=== PATIENT | male | born 1990 | race Caucasian/White ===

== ENCOUNTER 2017-12-18 10:02 | Emergency (ER) | payer OTHER ==
--- NOTE | 2017-12-18 10:28 | ER ---
Nurse's Notes [facility] Name: Orion Bass Age: 27 yrs Sex: Male : 1990 Arrival Date: 12/18/2017 Time: 10:07 Bed 20 Private MD: None, None Diagnosis: Otitis media, unspecified, right ear;Otitis externa-bilateral Presentation: 12/18 10:11 Presenting complaint: Patient states: Right ear pain for 2 days. Transition of care: aj patient was not received from another setting of care. Onset of symptoms was December 17, 2017. Care prior to arrival: None. 10:11 Method Of Arrival: Ambulatory 10:11 Acuity: WALTER 5 10:20 Risk Assessment: Do you want to hurt yourself or someone else? Patient reports no ae1 desire to harm self or others. Initial Sepsis Screen: Does the patient meet any 2 criteria? No. Patient's initial sepsis screen is negative. Does the patient have a suspected source of infection? No. Patient's initial sepsis screen is negative. Triage Assessment: 10:12 General: Appears in no apparent distress. comfortable, Behavior is calm, cooperative, aj appropriate for age. Pain: Complains of pain in right ear. EENT: Reports pain in right ear. Neuro: Level of Consciousness is awake, alert, obeys commands, Oriented to person, place, time, situation, Appropriate for age. Respiratory: Airway is patent Respiratory effort is even, unlabored, Respiratory pattern is regular, symmetrical. Derm: Skin is intact, is healthy with good turgor, Skin is pink, warm \T\ dry. normal. Historical: - Allergies: 10:12 No Known Allergies; aj - Home Meds: 10:12 None [Active]; aj - PMHx: 10:12 None; aj - PSHx: 10:12 Hernia repair; aj - Immunization history:: Adult Immunizations up to date. - Social history:: Smoking status: Patient/guardian denies using tobacco. - Ebola Screening: : Patient negative for fever greater than or equal to 101.5 degrees Fahrenheit, and additional compatible Ebola Virus Disease symptoms Patient denies exposure to infectious person Patient denies travel to an Ebola-affected area in the 21 days before illness onset. Screenin:20 Tuberculosis screening: No symptoms or risk factors identified. Fall Risk None ae1 identified. 10:21 Abuse screen: Denies threats or abuse. Denies injuries from another. ae1 15:06 Nutritional screening: No deficits noted. ae1 Assessment: 10:20 General: Appears in no apparent distress. comfortable, Behavior is calm, cooperative. ae1 Pain: Complains of pain in right ear. Neuro: Level of Consciousness is awake, alert, obeys commands, Oriented to person, place, time, situation. Cardiovascular: Patient's skin is warm and dry. Respiratory: Airway is patent Respiratory effort is even, unlabored, Respiratory pattern is regular, symmetrical. GI: No signs and/or symptoms were reported involving the gastrointestinal system. : No signs and/or symptoms were reported regarding the genitourinary system. EENT: No signs and/or symptoms were reported regarding the EENT system. Derm: No signs and/or symptoms reported regarding the dermatologic system. Musculoskeletal: No signs and/or symptoms reported regarding the musculoskeletal system. Vital Signs: 10:12 BP 126 / 84; Pulse 71; Resp 19; Temp 97.6; Pulse Ox 98% on R/A; Weight 72.57 kg; Height aj 5 ft. 9 in. (175.26 cm); 10:12 Body Mass Index 23.63 (72.57 kg, 175.26 cm) ED Course: 10:07 Patient arrived in ED. mr 10:07 None, None is Private Physician. mr 10:11 Les[facility]-C [facility]. snw 10:11 Anand Bowers MD is Attending Physician. snw 10:11 Triage completed. aj 10:12 Arm band placed on right wrist. Patient placed in an exam room. aj 10:20 Bed in low position. Call light in reach. Side rails up X 1. Pulse ox on. ae1 10:21 Kristopher Mares, BENIGNO is Primary Nurse. ae1 10:45 No provider procedures requiring assistance completed. Patient did not have IV access ae1 during this emergency room visit. Administered Medications: No medications were administered Outcome: 10:27 Discharge ordered by . snw 10:45 Discharged to home ambulatory, with family. ae1 10:45 Condition: stable 10:45 Discharge instructions given to patient, Instructed on discharge instructions, follow up and referral plans. Demonstrated understanding of instructions. 10:47 Patient left the ED. ae1 Signatures: Alondra Frederick, RN RN Lesly Moya, CERAMIC ARTIST-C CERAMIC ARTIST-Csnw Unique Aponte mr Kristopher Mares, RN RN ae1
--- NOTE | 2017-12-18 10:28 | EDPHYS ---
Physician Documentation [facility] Name: Orion Bass Age: 27 yrs Sex: Male : 1990 Arrival Date: 12/18/2017 Time: 10:07 Bed 20 Private MD: None, None ED Physician Anand Bowers HPI: 12/18 10:31 This 27 yrs old Male presents to ER via Ambulatory with complaints of Ear snw Pain. 10:31 The patient presents with pain, that is acute, tenderness. The complaints affect the snw right ear. Onset: The symptoms/episode began/occurred suddenly, 2 day(s) ago, and became worse and became persistent. Associated signs and symptoms: Pertinent positives: pain to right cheek, face, Pertinent negatives: fever, nausea. Severity of symptoms: At their worst the symptoms were moderate in the emergency department the symptoms are unchanged. It is unknown whether or not the patient has had similar symptoms in the past. The patient has not recently seen a physician. Historical: - Allergies: 10:12 No Known Allergies; aj - Home Meds: 10:12 None [Active]; aj - PMHx: 10:12 None; aj - PSHx: 10:12 Hernia repair; aj - Immunization history:: Adult Immunizations up to date. - Social history:: Smoking status: Patient/guardian denies using tobacco. - Ebola Screening: : Patient negative for fever greater than or equal to 101.5 degrees Fahrenheit, and additional compatible Ebola Virus Disease symptoms Patient denies exposure to infectious person Patient denies travel to an Ebola-affected area in the 21 days before illness onset. ROS: 10:26 Constitutional: Negative for fever, chills, and weight loss, Eyes: Negative for injury, snw pain, redness, and discharge, Neck: Negative for injury, pain, and swelling, Cardiovascular: Negative for chest pain, palpitations, and edema, Respiratory: Negative for shortness of breath, cough, wheezing, and pleuritic chest pain, Abdomen/GI: Negative for abdominal pain, nausea, vomiting, diarrhea, and constipation, Back: Negative for injury and pain, : Negative for injury, bleeding, discharge, and swelling, MS/Extremity: Negative for injury and deformity, Skin: Negative for injury, rash, and discoloration, Neuro: Negative for headache, weakness, numbness, tingling, and seizure. 10:26 ENT: Positive for ear pain. Exam: 10:16 Constitutional: This is a well developed, well nourished patient who is awake, alert, snw and in no acute distress. Head/Face: Normocephalic, atraumatic. Eyes: Pupils equal round and reactive to light, extra-ocular motions intact. Lids and lashes normal. Conjunctiva and sclera are non-icteric and not injected. Cornea within normal limits. Periorbital areas with no swelling, redness, or edema. Neck: Trachea midline, no thyromegaly or masses palpated, and no cervical lymphadenopathy. Supple, full range of motion without nuchal rigidity, or vertebral point tenderness. No Meningismus. Chest/axilla: Normal chest wall appearance and motion. Nontender with no deformity. No lesions are appreciated. Cardiovascular: Regular rate and rhythm with a normal S1 and S2. No gallops, murmurs, or rubs. Normal PMI, no JVD. No pulse deficits. Respiratory: Lungs have equal breath sounds bilaterally, clear to auscultation and percussion. No rales, rhonchi or wheezes noted. No increased work of breathing, no retractions or nasal flaring. Abdomen/GI: Soft, non-tender, with normal bowel sounds. No distension or tympany. No guarding or rebound. No evidence of tenderness throughout. Back: No spinal tenderness. No costovertebral tenderness. Full range of motion. Skin: Warm, dry with normal turgor. Normal color with no rashes, no lesions, and no evidence of cellulitis. MS/ Extremity: Pulses equal, no cyanosis. Neurovascular intact. Full, normal range of motion. Neuro: Awake and alert, GCS 15, oriented to person, place, time, and situation. Cranial nerves II-XII grossly intact. Motor strength 5/5 in all extremities. Sensory grossly intact. Cerebellar exam normal. Normal gait. 10:16 ENT: Ear canal(s): erythema, that is moderate, bilaterally, TM's: erythema, that is moderate, on the right, Nose: is normal, Mouth: is normal, Posterior pharynx: is normal, Voice: is normal. Vital Signs: 10:12 BP 126 / 84; Pulse 71; Resp 19; Temp 97.6; Pulse Ox 98% on R/A; Weight 72.57 kg; Height aj 5 ft. 9 in. (175.26 cm); 10:12 Body Mass Index 23.63 (72.57 kg, 175.26 cm) aj MDM: 10:14 Patient medically screened. snw 10:30 Data reviewed: vital signs, nurses notes. Data interpreted: Pulse oximetry: on room air snw is 98 %. Interpretation: normal. Counseling: I had a detailed discussion with the patient and/or guardian regarding: the historical points, exam findings, and any diagnostic results supporting the discharge/admit diagnosis, the presence of at least one elevated blood pressure reading (>120/80) during this emergency department visit, the need for outpatient follow up, for definitive care, to return to the emergency department if symptoms worsen or persist or if there are any questions or concerns that arise at home. Special discussion: Based on the history and exam findings, there is no indication for further emergent testing or inpatient evaluation. I discussed with the patient/guardian the need to see the ENT specialist for further evaluation of the symptoms. I discussed with the patient/guardian the need to see the primary care provider for further evaluation of the symptoms. Administered Medications: No medications were administered Disposition: 11:16 Co-signature as Attending Physician, Anand Bowers MD I agree with the assessment and kdr plan of care. Disposition: 12/18/17 10:27 Discharged to Home. Impression: Otitis media, unspecified, right ear, Otitis externa - bilateral. - Condition is Stable. - Discharge Instructions: Otitis Media, Adult, Otitis Externa, Heat Therapy. - Prescriptions for Augmentin 500- 125 mg Oral Tablet - take 1 tablet by ORAL route every 8 hours for 10 days; 30 tablet. Diclofenac Sodium 75 mg Oral Tablet Sustained Release - take 1 tablet by ORAL route 2 times per day; 30 tablet. Ciprodex 0.3- 0.1 % Otic Drops, Suspension - instill 4 drop by OTIC route every 12 hours for 7 days , for ears ONLY; 1 Container. - Work release form, Medication Reconciliation Form, Thank You Letter, Antibiotic Education, Prescription Opioid Use form. - Follow up: Private Physician; When: 2 - 3 days; Reason: Recheck today's complaints, Continuance of care, Re-evaluation by your physician. Follow up: Emergency Department; When: As needed; Reason: Worsening of condition. Signatures: Alondra Frederick, RN RN Anand Ortiz MD MD kdr Lesly Vincent, HEALTH UNDERWRITER-C HEALTH UNDERWRITER-Csnw Kristopher Mares, RN RN ae1 Corrections: (The following items were deleted from the chart) 10:47 10:27 12/18/2017 10:27 Discharged to Home. Impression: Otitis media, unspecified, right ae1 ear; Otitis externa - bilateral. Condition is Stable. Forms are Medication Reconciliation Form, Thank You Letter, Antibiotic Education, Prescription Opioid Use. Follow up: Private Physician; When: 2 - 3 days; Reason: Recheck today's complaints, Continuance of care, Re-evaluation by your physician. Follow up: Emergency Department; When: As needed; Reason: Worsening of condition. snw
[2017-12-18 10:51] VITALS: BP 126/84; TEMP 97.6; O2SAT 98
== END 2017-12-18 10:47 | disposition home or self-care (01) ==
LOC: ER 10:02
DX: H66.91 Otitis media, unspecified, right ear (principal); H60.93 Unspecified otitis externa, bilateral
CPT/HCPCS: 99283

== ENCOUNTER 2018-03-13 15:11 | Emergency (ER) | payer OTHER ==
--- NOTE | 2018-03-13 15:45 | RAD REPORT ---
EXAM DESCRIPTION: RAD - Chest Pa And Lat (2 Views) - 03/13/2018 3:37 pm CLINICAL HISTORY: COUGH Chest pain. COMPARISON: Chest Single View dated 03/02/2017; Chest Single View dated 09/20/2016 FINDINGS: The lungs are clear. The heart is normal in size. No displaced fractures. IMPRESSION: No acute or concerning finding suspected.
--- NOTE | 2018-03-13 16:11 | EDPHYS ---
Physician Documentation [facility] Name: Orion Bass Age: 27 yrs Sex: Male : 1990 Arrival Date: 03/13/2018 Time: 15:16 Bed 25 Private MD: ED Physician Caesar Ivy HPI: 03/13 15:40 This 27 yrs old Male presents to ER via Ambulatory with complaints of Cold kb Symptoms. 15:40 The patient or guardian reports cough, that is intermittent, described as mild, with kb productive sputum, that is yellow. Onset: The symptoms/episode began/occurred 1 week(s) ago. Severity of symptoms: At their worst the symptoms were moderate, in the emergency department the symptoms are unchanged. Modifying factors: The symptoms are alleviated by nothing, the symptoms are aggravated by nothing. Associated signs and symptoms: Pertinent positives: rhinorrhea, sore throat, Pertinent negatives: chest pain, diarrhea, ear ache, fever, nausea, vomiting. The patient has experienced similar episodes in the past, a few times. The patient has not recently seen a physician. Historical: - Allergies: 15:18 No Known Allergies; sv - Home Meds: 15:18 None [Active]; sv - PMHx: 15:18 None; sv - PSHx: 15:18 Hernia repair; sv - Immunization history:: Adult Immunizations up to date. - Social history:: Smoking status: Patient/guardian denies using tobacco. - Ebola Screening: : No symptoms or risks identified at this time. ROS: 15:38 Cardiovascular: Negative for chest pain, palpitations, and edema, Abdomen/GI: Negative kb for abdominal pain, nausea, vomiting, diarrhea, and constipation, Back: Negative for injury and pain, : Negative for injury, bleeding, discharge, and swelling, MS/Extremity: Negative for injury and deformity, Skin: Negative for injury, rash, and discoloration, Neuro: Negative for headache, weakness, numbness, tingling, and seizure. 15:38 Constitutional: Positive for fever, Negative for body aches, chills, fatigue, malaise, poor PO intake, weight loss. 15:38 ENT: Positive for rhinorrhea, sore throat. 15:38 Respiratory: Positive for cough, with yellow sputum, Negative for dyspnea on exertion, hemoptysis, orthopnea, pleurisy, shortness of breath, wheezing. Exam: 15:38 Constitutional: This is a well developed, well nourished patient who is awake, alert, kb and in no acute distress. Head/Face: Normocephalic, atraumatic. Chest/axilla: Normal chest wall appearance and motion. Nontender with no deformity. No lesions are appreciated. Cardiovascular: Regular rate and rhythm with a normal S1 and S2. No gallops, murmurs, or rubs. Normal PMI, no JVD. No pulse deficits. Respiratory: Lungs have equal breath sounds bilaterally, clear to auscultation and percussion. No rales, rhonchi or wheezes noted. No increased work of breathing, no retractions or nasal flaring. Abdomen/GI: Soft, non-tender, with normal bowel sounds. No distension or tympany. No guarding or rebound. No evidence of tenderness throughout. Back: No spinal tenderness. No costovertebral tenderness. Full range of motion. Skin: Warm, dry with normal turgor. Normal color with no rashes, no lesions, and no evidence of cellulitis. MS/ Extremity: Pulses equal, no cyanosis. Neurovascular intact. Full, normal range of motion. Neuro: Awake and alert, GCS 15, oriented to person, place, time, and situation. Cranial nerves II-XII grossly intact. Motor strength 5/5 in all extremities. Sensory grossly intact. Cerebellar exam normal. Normal gait. 15:38 ENT: Posterior pharynx: Airway: normal, no evidence of obstruction, Tonsils: are normal in appearance, Uvula: normal, midline, swelling, is not appreciated, erythema, that is mild, exudate, is not appreciated. Vital Signs: 15:18 BP 118 / 88; Pulse 91; Resp 18; Temp 98.2; Pulse Ox 98% ; Weight 72.57 kg; Height 5 ft. sv 7 in. (170.18 cm); Pain 0/10; 16:00 BP 120 / 78; Pulse 90; Resp 18; Pulse Ox 100% on R/A; Pain 0/10; mg2 15:18 Body Mass Index 25.06 (72.57 kg, 170.18 cm) sv MDM: 15:19 Patient medically screened. kb 15:38 Data reviewed: vital signs, nurses notes. Data interpreted: Pulse oximetry: on room air kb is 98 %. Interpretation: normal. 15:57 Counseling: I had a detailed discussion with the patient and/or guardian regarding: the kb historical points, exam findings, and any diagnostic results supporting the discharge/admit diagnosis, lab results, radiology results, the need for outpatient follow up, a family practitioner, to return to the emergency department if symptoms worsen or persist or if there are any questions or concerns that arise at home. 03/13 15:28 Order name: Strep; Complete Time: 15:57 kb 03/13 15:58 Order name: Throat Culture EDCO 03/13 15:28 Order name: Chest Pa And Lat (2 Views) XRAY; Complete Time: 15:46 kb Administered Medications: No medications were administered Disposition: 03/14 08: Co-signature as Attending Physician, Caesar Ivy MD I agree with the assessment and wa plan of care. Disposition: 03/13/18 16:10 Discharged to Home. Impression: Acute upper respiratory infection, unspecified. - Condition is Stable. - Discharge Instructions: Upper Respiratory Infection, Adult, [id number]. - Medication Reconciliation Form, Thank You Letter, Antibiotic Education, Prescription Opioid Use, Work release form form. - Follow up: Emergency Department; When: As needed; Reason: Worsening of condition. Follow up: Private Physician; When: 2 - 3 days; Reason: Recheck today's complaints, Continuance of care, Re-evaluation by your physician. Signatures: Dispatcher [employer] [facility] Yudy Stout, OZZY BURRIS-Lindsay Lr RN RN sv [place], William, MD MD wa [place]ose, Michele RN RN mg2 Corrections: (The following items were deleted from the chart) 03/13 16:20 16:10 03/13/2018 16:10 Discharged to Home. Impression: Acute upper respiratory mg2 infection, unspecified. Condition is Stable. Forms are Medication Reconciliation Form, Thank You Letter, Antibiotic Education, Prescription Opioid Use. Follow up: Emergency Department; When: As needed; Reason: Worsening of condition. Follow up: Private Physician; When: 2 - 3 days; Reason: Recheck today's complaints, Continuance of care, Re-evaluation by your physician. kb
--- NOTE | 2018-03-13 16:11 | ER ---
Nurse's Notes [facility] Name: Orion Bass Age: 27 yrs Sex: Male : 1990 Arrival Date: 03/13/2018 Time: 15:16 Bed 25 Private MD: Diagnosis: Acute upper respiratory infection, unspecified Presentation: 03/13 15:17 Presenting complaint: Patient states: sore throat, productive cough with yellow sputum, sv sneezing x 1 week. Transition of care: patient was not received from another setting of care. Onset of symptoms was March 06, 2018. Care prior to arrival: None. 15:17 Method Of Arrival: Ambulatory sv 15:17 Acuity: WALTER 3 sv 15:20 Risk Assessment: Do you want to hurt yourself or someone else? Patient reports no mg2 desire to harm self or others. Initial Sepsis Screen: Does the patient meet any 2 criteria? No. Patient's initial sepsis screen is negative. Does the patient have a suspected source of infection? No. Patient's initial sepsis screen is negative. Historical: - Allergies: 15:18 No Known Allergies; sv - Home Meds: 15:18 None [Active]; sv - PMHx: 15:18 None; sv - PSHx: 15:18 Hernia repair; sv - Immunization history:: Adult Immunizations up to date. - Social history:: Smoking status: Patient/guardian denies using tobacco. - Ebola Screening: : No symptoms or risks identified at this time. Screenin:25 Abuse screen: Denies threats or abuse. Denies injuries from another. Nutritional mg2 screening: No deficits noted. Tuberculosis screening: No symptoms or risk factors identified. Fall Risk None identified. Assessment: 15:25 General: Appears in no apparent distress. comfortable, Behavior is calm, cooperative. mg2 Pain: Complains of pain in throat Pain does not radiate. Pain currently is 2 out of 10 on a pain scale. Quality of pain is described as aching, Pain began gradually. Neuro: Level of Consciousness is awake, alert, obeys commands, Oriented to person, place, time, situation. Cardiovascular: Capillary refill < 3 seconds Patient's skin is warm and dry. Respiratory: Airway is patent Respiratory effort is even, unlabored, Respiratory pattern is regular, symmetrical, Breath sounds are clear bilaterally. Respiratory: Reports cough that is non-productive. GI: No signs and/or symptoms were reported involving the gastrointestinal system. : No signs and/or symptoms were reported regarding the genitourinary system. EENT: Ear canal clear on left ear and right ear Throat is clear. Derm: Skin is intact, Skin is pink, warm \T\ dry. normal. Musculoskeletal: No signs and/or symptoms reported regarding the musculoskeletal system. 16:15 Reassessment: Patient appears in no apparent distress at this time. Patient and/or mg2 family updated on plan of care and expected duration. Pain level reassessed. Patient is alert, oriented x 3, equal unlabored respirations, skin warm/dry/pink. Vital Signs: 15:18 BP 118 / 88; Pulse 91; Resp 18; Temp 98.2; Pulse Ox 98% ; Weight 72.57 kg; Height 5 ft. sv 7 in. (170.18 cm); Pain 0/10; 16:00 BP 120 / 78; Pulse 90; Resp 18; Pulse Ox 100% on R/A; Pain 0/10; mg2 15:18 Body Mass Index 25.06 (72.57 kg, 170.18 cm) sv ED Course: 15:16 Patient arrived in ED. as 15:17 [facility]C [facility] kb 15:17 Caesar Ivy MD is Attending Physician. kb 15:17 Triage completed. sv 15:18 Arm band placed on right wrist. sv 15:20 Anderson Briseno, BENIGNO is Primary Nurse. mg2 15:20 Patient has correct armband on for positive identification. mg2 15:25 No provider procedures requiring assistance completed. mg2 15:33 Strep swab sent to lab. mg2 15:35 Patient moved to radiology PT REFUSED W/C FOR TRANSPORT TO X RAY DEPT, PT AMBULATED. mh1 15:35 X-ray completed. Patient tolerated procedure well. Patient moved back from radiology. mh1 15:36 Chest Pa And Lat (2 Views) XRAY In Process Unspecified. EDMS 16:19 Patient did not have IV access during this emergency room visit. mg2 Administered Medications: No medications were administered Outcome: 16:10 Discharge ordered by . kb 16:19 Discharged to home ambulatory, with family. mg2 16:19 Condition: good 16:19 Discharge instructions given to patient, family, Instructed on discharge instructions, follow up and referral plans. Demonstrated understanding of instructions, follow-up care. 16:20 Patient left the ED. mg2 Signatures: Dispatcher [employer] EDYudy Villegas, FATUMA-C REGISTERED MIDWIFE-Lindsay Lr RN RN [place] [facility] Gena Coffman Michele, RN RN mg2 Corrections: (The following items were deleted from the chart) 15:20 15:17 Presenting complaint: Patient states: sore throat, coughing, sneezing x 1 week. svsv
[2018-03-13 16:30] VITALS: TEMP 98.2
[2018-03-13 16:31] VITALS: BP 120/78; O2SAT 100
== END 2018-03-13 16:20 | disposition home or self-care (01) ==
LOC: ER 15:11
DX: J06.9 Acute upper respiratory infection, unspecified (principal)
CPT/HCPCS: 71046; 87070; 87081; 99283

== ENCOUNTER 2018-12-04 15:40 | Emergency (ER) | payer OTHER, SELFPAY ==
[2018-12-04] MEDS ORDERED: DIPHENHYDRAMINE 25 MG TAB/CAP ONE (17:09)
[2018-12-04] MEDS ORDERED: FAMOTIDINE 20 MG TAB ONE (17:09)
[2018-12-04] MEDS ORDERED: METHYLPREDNISOLONE 125 MG INJ ONE (17:09)
--- NOTE | 2018-12-04 17:56 | EDPHYS ---
Physician Documentation [facility] Name: Orion Bass Age: 28 yrs Sex: Male : 1990 Arrival Date: 12/04/2018 Time: 15:41 Bed 30 Private MD: ED Physician Fabio Hensley HPI: 12/04 17:13 This 28 yrs old Male presents to ER via Ambulatory with complaints of Hives. pm1 17:13 The patient's rash thought to be caused by insect bite or contact with cleaning agent pm1 on the floor. 17:13 The rash is located on the right hand, left hand and right knee. Onset: The pm1 symptoms/episode began/occurred today. Associated signs and symptoms: Pertinent negatives: difficulty breathing, fever, itching, swelling of lips, swelling of throat, swelling of tongue, vomiting, wheezing. Severity of symptoms: in the emergency department the symptoms are unchanged. Treatment given at home: None. The patient has not experienced similar symptoms in the past. The patient has not recently seen a physician. Patient at daycare and mother was told that he has a rash to his right knee and both hands. Mother believes that it is either insect bites of possible reaction to the floor cleaning material - contact with crawling. Historical: - Allergies: 15:46 No Known Allergies; ss - Home Meds: 15:46 None [Active]; ss - PMHx: 15:46 None; ss - PSHx: 15:46 Hernia repair; ss - Immunization history:: Adult Immunizations unknown. - Social history:: Smoking status: Patient uses tobacco products, denies chronic smoking, but will smoke occasionally. - Ebola Screening: : Patient denies exposure to infectious person Patient denies travel to an Ebola-affected area in the 21 days before illness onset. ROS: 17:13 Constitutional: Negative for fever, chills, and weight loss, Eyes: Negative for injury, pm1 pain, redness, and discharge, ENT: Negative for injury, pain, and discharge, Neck: Negative for injury, pain, and swelling, Cardiovascular: Negative for chest pain, palpitations, and edema, Respiratory: Negative for shortness of breath, cough, wheezing, and pleuritic chest pain, Abdomen/GI: Negative for abdominal pain, nausea, vomiting, diarrhea, and constipation, Back: Negative for injury and pain, : Negative for injury, bleeding, discharge, and swelling, MS/Extremity: Negative for injury and deformity. 17:13 Neuro: Negative for headache, weakness, numbness, tingling, and seizure. 17:13 Skin: Positive for rash, of the left hand and right hand and right knee, Negative for cellulitis. Exam: 17:13 Constitutional: This is a well developed, well nourished patient who is awake, alert, pm1 and in no acute distress. Head/Face: Normocephalic, atraumatic. Eyes: Pupils equal round and reactive to light, extra-ocular motions intact. Lids and lashes normal. Conjunctiva and sclera are non-icteric and not injected. Cornea within normal limits. Periorbital areas with no swelling, redness, or edema. ENT: Nares patent. No nasal discharge, no septal abnormalities noted. Tympanic membranes are normal and external auditory canals are clear. Oropharynx with no redness, swelling, or masses, exudates, or evidence of obstruction, uvula midline. Mucous membranes moist. Neck: Trachea midline, no thyromegaly or masses palpated, and no cervical lymphadenopathy. Supple, full range of motion without nuchal rigidity, or vertebral point tenderness. No Meningismus. Chest/axilla: Normal chest wall appearance and motion. Nontender with no deformity. No lesions are appreciated. Cardiovascular: Regular rate and rhythm with a normal S1 and S2. No gallops, murmurs, or rubs. Normal PMI, no JVD. No pulse deficits. Respiratory: Lungs have equal breath sounds bilaterally, clear to auscultation and percussion. No rales, rhonchi or wheezes noted. No increased work of breathing, no retractions or nasal flaring. Abdomen/GI: Soft, non-tender, with normal bowel sounds. No distension or tympany. No guarding or rebound. No evidence of tenderness throughout. Back: No spinal tenderness. No costovertebral tenderness. Full range of motion. 17:13 MS/ Extremity: Pulses equal, no cyanosis. Neurovascular intact. Full, normal range of motion. 17:13 Skin: Appearance: normal except for affected area, abscess, not appreciated, cellulitis, is not appreciated, consistent with contact dermatitis. 17:13 Neuro: Orientation: is normal, Motor: is normal, moves all fours, Sensation: is normal, no obvious gross deficits. Vital Signs: 15:46 BP 137 / 98; Pulse 104; Resp 16; Temp 98.9(TE); Pulse Ox 98% on R/A; Weight 74.84 kg; ss Height 5 ft. 7 in. (170.18 cm); Pain 0/10; 18:06 BP 125 / 78; Pulse 89; Resp 18; Temp 98.5(O); Pulse Ox 100% on R/A; Pain 0/10; mg2 15:46 Body Mass Index 25.84 (74.84 kg, 170.18 cm) ss MDM: 16:38 Patient medically screened. pm1 17:54 Data reviewed: vital signs. Data interpreted: Pulse oximetry: on room air is 98 %. pm1 Interpretation: normal. Counseling: I had a detailed discussion with the patient and/or guardian regarding: the historical points, exam findings, and any diagnostic results supporting the discharge/admit diagnosis, the need for outpatient follow up, to return to the emergency department if symptoms worsen or persist or if there are any questions or concerns that arise at home. 12/04 16:46 Order name: Strep; Complete Time: 17:54 pm1 12/04 16:46 Order name: Flu; Complete Time: 17:54 pm1 12/04 17:51 Order name: Throat Culture EDMS Administered Medications: 17:14 Drug: SOLU-Medrol 125 mg Route: IM; Site: right gluteus; mg2 18:07 Follow up: Response: No adverse reaction; Marked relief of symptoms mg2 17:14 Drug: Pepcid 20 mg Route: PO; mg2 18:07 Follow up: Response: No adverse reaction; Marked relief of symptoms mg2 17:14 Drug: Benadryl 25 mg Route: PO; mg2 18:07 Follow up: Response: No adverse reaction; Marked relief of symptoms mg2 Disposition: 12/05 16:16 Co-signature as Attending Physician, Fabio Hensley MD. Disposition: 12/04/18 17:54 Discharged to Home. Impression: Urticaria, Acute pharyngitis. - Condition is Stable. - Discharge Instructions: Contact Dermatitis, Hives, Pharyngitis. - Prescriptions for Benadryl 25 mg Oral Capsule - take 1 capsule by ORAL route every 6 hours As needed; 30 tablet. Pepcid 20 mg Oral Tablet - take 1 tablet by ORAL route every 12 hours for 5 days; 10 tablet. Medrol (John) 4 mg Oral Tablets, Dose Pack - take 1 tablet by ORAL route as directed - follow package instructions; 1 packet. - Medication Reconciliation Form, Thank You Letter, Antibiotic Education, Prescription Opioid Use form. - Follow up: Emergency Department; When: As needed; Reason: Worsening of condition. Follow up: Private Physician; When: 2 - 3 days; Reason: Recheck today's complaints, Continuance of care, Re-evaluation by your physician. - Problem is new. - Symptoms have improved. Signatures: Dispatcher [employer] EDMS Angela Miranda RN RN ss Vinh Drake, SALES ENGAGEMENT MANAGER SALES ENGAGEMENT MANAGER pm1 Fabio Hensley MD MD Anderson Briseno RN RN mg2 Corrections: (The following items were deleted from the chart) 12/04 17:55 17:54 12/04/2018 17:54 Discharged to Home. Impression: Acute pharyngitis; Urticaria. pm1 Condition is Stable. Forms are Medication Reconciliation Form, Thank You Letter, Antibiotic Education, Prescription Opioid Use. Follow up: Emergency Department; When: As needed; Reason: Worsening of condition. Follow up: Private Physician; When: 2 - 3 days; Reason: Recheck today's complaints, Continuance of care, Re-evaluation by your physician. Problem is new. Symptoms have improved. pm1 18:07 17:55 12/04/2018 17:54 Discharged to Home. Impression: UrticariaAcute pharyngitis. mg2 Condition is Stable. Forms are Medication Reconciliation Form, Thank You Letter, Antibiotic Education, Prescription Opioid Use. Follow up: Emergency Department; When: As needed; Reason: Worsening of condition. Follow up: Private Physician; When: 2 - 3 days; Reason: Recheck today's complaints, Continuance of care, Re-evaluation by your physician. Problem is new. Symptoms have improved. pm1
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
[2018-12-04 18:16] VITALS: BP 125/78; TEMP 98.5; O2SAT 100
== END 2018-12-04 18:07 | disposition home or self-care (01) ==
LOC: ER 15:40
DX: L50.9 Urticaria, unspecified (principal); J02.9 Acute pharyngitis, unspecified; Z72.0 Tobacco use
CPT/HCPCS: 87070; 87081; 87804; 96372; 99283; J2930

== ENCOUNTER 2019-08-17 07:09 | Emergency (ER) | payer SELFPAY ==
--- OUTSIDE RECORDS SUMMARY | 2019-08-17 07:11 | XMS REPORT ---
:1990 Author Organization eClinicalWorks Care Team Providers Name Role Phone Brisa Knox Provider Role Unavailable Allergies No Known Allergies Problems Problem Type Condition Code Onset Dates Condition Status Problem Seasonal allergies J30.2 Active Problem Sinus problem J34.9 Active Problem Migraine G43.909 Active Problem Intractable migraine without G43.919 Active status migrainosus, unspecified migraine type Problem Allergic rhinitis, unspecified J30.9 Active seasonality, unspecified trigger Problem Chronic rhinitis J31.0 Active Problem Adverse effect of other T48.5X5A Active iewp-xldpgx-druh drugs, initial encounter Medications Medication Code Code Instructions Start End Date Status Dosage System Date Indomethacin [facility] 98911904758 50 MG Orally Jun 22, Jul 22, Active 1 capsule Twice a day 2018 2019 with food or milk Results No Known Results Summary Purpose eClinicalWorks Submission
--- OUTSIDE RECORDS SUMMARY | 2019-08-17 07:11 | XMS REPORT ---
:1990 Author Organization eClinicalWorks Care Team Providers Name Role Phone Brisa Knox Provider Role Unavailable Allergies, Adverse Reactions, Alerts Substance Reaction Event Type N.K.D.A. Info Not Available Non Drug Allergy Problems Problem Type Condition Code Onset Dates Condition Status Assessment Adverse effect of other T48.5X5A Active ogds-wasdfk-eaiv drugs, initial encounter Assessment Allergic rhinitis, unspecified J30.9 Active seasonality, unspecified trigger Assessment Intractable migraine without G43.919 Active status migrainosus, unspecified migraine type Problem Seasonal allergies J30.2 Active Problem Sinus problem J34.9 Active Problem Migraine G43.909 Active Problem Intractable migraine without G43.919 Active status migrainosus, unspecified migraine type Problem Allergic rhinitis, unspecified J30.9 Active seasonality, unspecified trigger Problem Chronic rhinitis J31.0 Active Problem Adverse effect of other T48.5X5A Active geex-edcdma-mofx drugs, initial encounter Medications Medication Code Code Instructions Start End Date Status Dosage System Date Tylenol [facility] 26468034389 325 MG Orally Active 1 capsule every 4 hrs as needed Diclofenac [place] 00227323261 50 MG Orally May 26September Active 1 tablet as Potassium Twice a day 2018 needed fo headache/pa in; take with food or milk Topamax [facility] 19745102192 25 MG Orally May 26, Active 1 tablet Once a day in 2018 evening for migraine headache Nasonex ND 19215523314 50 MCG/ACT May 26, Active 2 sprays in Nasally Once a 2019 each day nostril One Daily Mens [facility] 32391967847 - Orally Active as directed Results No Known Results Summary Purpose eClinicalWorks Submission
[2019-08-17] MEDS ORDERED: NA CHLORIDE 0.9% 1,000 ML ONE (07:30)
[2019-08-17] MEDS ORDERED: ONDANSETRON 4 MG/2 ML VIAL ONE (07:30)
[2019-08-17] MEDS ORDERED: KETOROLAC 30 MG/ML INJ ONE (07:30)
[2019-08-17 07:49] LABS: Absolute Lymphocytes (CBC) 4.3 K/uL (0.7-4.9); Basophils % 0.7 % (0-1.3); Hematocrit 41.9 % (39.6-49.0); Lymphocytes % 35.7 % (15.3-44.8); MPV 9.1 fL (7.6-11.3); RBC Red Blood Cell Count 4.59 M/uL (4.33-5.43)
[2019-08-17] MEDS ORDERED: MORPHINE 4 MG/ML SYR ONE ×2 (07:50→11:08)
[2019-08-17 07:58] LABS: ALT/SGPT 29 U/L (12-78); AST/SGOT 12 U/L (15-37); Albumin 3.9 g/dL (3.4-5.0); Alkaline Phosphatase 79 U/L (45-117); BUN Blood Urea Nitrogen 16 mg/dL (7-18); Bicarbonate 24 mmol/L (21-32); Bilirubin Direct < 0.1 mg/dL (0-0.2); Bilirubin Total 0.2 mg/dL (0.2-1.0); Glucose Level 112 mg/dL (74-106); Lipase 67 U/L (73-393); Potassium 3.9 mmol/L (3.5-5.1); Protein, Total 6.9 g/dL (6.4-8.2); Sodium Level 142 mmol/L (136-145)
[2019-08-17] MEDS ORDERED: HYDROMORPHONE HCL 1 MG/ML INJ ONE (08:24)
[2019-08-17] MEDS ORDERED: METOCLOPRAMIDE 10 MG/2mL INJ ONE (08:24)
[2019-08-17] MEDS ORDERED: NA CHLORIDE 0.9% 100 ML IV ONE (08:24)
--- NOTE | 2019-08-17 08:56 | RAD REPORT ---
EXAM DESCRIPTION: CT - Stone Protocol - 08/17/2019 8:04 am CLINICAL HISTORY: Flank pain. Left Flank Pain COMPARISON: CTSTONE PROTOCOL dated 07/26/2014 TECHNIQUE: Axial images were obtained without oral or IV contrast. Lack of contrast limits solid org an and vascular assessment. The lwbhw-os-vpty spans the entirety of the system partially obscuring uppermost abdomen and lung bases. Coronal reformatted images were obtained and reviewed. All CT scans are performed using dose optimization technique as appropriate and may include automated exposure control or mA/KV adjustment according to patient size. FINDINGS: The lower lung leo are clear. Imaged portions of the liver and spleen show no suspicious findings on non-contrast imaging. The panc reas and adrenal glands are normal. No pathologic lymphadenopathy in the abdomen or pelvis. 5-6 mm stone is present mid left ureter (1500 HU) resulting in jxzg-vw-xrusjfyc left-sided hydronephr osis. No bowel obstruction, free air, free fluid or abscess. Normal appendix noted. No significant bony abnormality. IMPRESSION: 5-6 mm stone is present mid left ureter resulting in mild to moderate left-sided hydrone phrosis.
[2019-08-17] MEDS ORDERED: HYDROCODONE/APAP 10/325 TAB ONE (09:48)
--- NOTE | 2019-08-17 10:38 | RAD REPORT ---
EXAM DESCRIPTION: RAD - Abdomen 1 View (KUB) - 08/17/2019 10:28 am CLINICAL HISTORY: left kidney stone;Abd pain Pain COMPARISON: Stone Protocol dated 08/17/2019 FINDINGS: The bowel gas pattern is non-obstructive. No evidence of free air or pneumatosis. [place] c alcification is seen just inferior to the left transverse process of L4. This likely represents the p atshani's known mid left ureter stone.
--- NOTE | 2019-08-17 11:17 | EDPHYS ---
Physician Documentation [facility] Name: Orion Bass Age: 28 yrs Sex: Male : 1990 Arrival Date: 08/17/2019 Time: 07:12 Bed 20 Private MD: None, None ED Physician Anand Bowers HPI: 08/17 07:29 This 28 yrs old Male presents to ER via Unassigned with complaints of kdr Abdominal Pain. 07:29 The patient presents with abdominal pain Left flank. Onset: The symptoms/episode kdr began/occurred suddenly, this morning, at 05:30. The symptoms radiate to the left flank. Associated signs and symptoms: Pertinent positives: nausea, Pertinent negatives: blood in stools, chest pain, diarrhea, dysuria, fever, headache, hematuria, palpitations, shortness of breath, testicular pain, vomiting, vomiting blood. The symptoms are described as achy, sharp, steady. Modifying factors: The symptoms are alleviated by nothing, the symptoms are aggravated by nothing. Severity of pain: At its worst the pain was severe incapacitating just prior to arrival. The patient has experienced similar episodes in the past, a few times, with the last episode occurring 5 year(s) ago, and the symptoms today are exactly the same, to previous Kidney stone. The patient has not recently seen a physician. Historical: - Allergies: 07:39 No Known Allergies; sv - PMHx: 07:39 Kidney stones; sv - PSHx: 07:39 Hernia repair; sv - Immunization history:: Adult Immunizations up to date. - Coronavirus screen:: The patient has NOT traveled to [place], [place], or [place] in the past 14 days. Proceed with normal triage process as indicated. - Ebola Screening: : No symptoms or risks identified at this time. ROS: 07:29 Constitutional: Negative for fever, chills, and weight loss, Eyes: Negative for injury, kdr pain, redness, and discharge, ENT: Negative for injury, pain, and discharge, Neck: Negative for injury, pain, and swelling, Cardiovascular: Negative for chest pain, palpitations, and edema, Respiratory: Negative for shortness of breath, cough, wheezing, and pleuritic chest pain, Back: Negative for injury and pain, : Negative for injury, bleeding, discharge, and swelling, MS/Extremity: Negative for injury and deformity, Skin: Negative for injury, rash, and discoloration, Neuro: Negative for headache, weakness, numbness, tingling, and seizure activity. Psych: Negative for depression, anxiety, suicide ideation, homicidal ideation, and hallucinations, Allergy/Immunology: Negative for hives, rash, and allergies, Endocrine: Negative for neck swelling, polydipsia, polyuria, polyphagia, and marked weight changes, Hematologic/Lymphatic: Negative for swollen nodes, abnormal bleeding, and unusual bruising. 07:29 Abdomen/GI: Positive for abdominal pain, nausea, Left flank pain. Exam: 07:29 Constitutional: This is a well developed, well nourished patient who is awake, alert, kdr and in moderate distress. Head/Face: Normocephalic, atraumatic. Eyes: Pupils equal round and reactive to light, extra-ocular motions intact. Lids and lashes normal. Conjunctiva and sclera are non-icteric and not injected. Cornea within normal limits. Periorbital areas with no swelling, redness, or edema. Neck: Trachea midline, no thyromegaly or masses palpated, and no cervical lymphadenopathy. Supple, full range of motion without nuchal rigidity, or vertebral point tenderness. No Meningismus. Chest/axilla: Normal chest wall appearance and motion. Nontender with no deformity. No lesions are appreciated. Cardiovascular: Regular rate and rhythm with a normal S1 and S2. No gallops, murmurs, or rubs. Normal PMI, no JVD. No pulse deficits. Respiratory: Lungs have equal breath sounds bilaterally, clear to auscultation and percussion. No rales, rhonchi or wheezes noted. No increased work of breathing, no retractions or nasal flaring. Back: No spinal tenderness. No costovertebral tenderness. Full range of motion. Skin: Warm, dry with normal turgor. Normal color with no rashes, no lesions, and no evidence of cellulitis. MS/ Extremity: Pulses equal, no cyanosis. Neurovascular intact. Full, normal range of motion. Neuro: Awake and alert, GCS 15, oriented to person, place, time, and situation. Cranial nerves II-XII grossly intact. Motor strength 5/5 in all extremities. Sensory grossly intact. Cerebellar exam normal. Normal gait. Psych: Awake, alert, with orientation to person, place and time. Behavior, mood, and affect are within normal limits. 07:29 Abdomen/GI: Inspection: abdomen appears normal, Bowel sounds: active, diminished, in all quadrants, Palpation: soft, mild abdominal tenderness, in the anterior aspect of left lateral abdomen and posterior aspect of left lateral abdomen. Vital Signs: 07:40 BP 160 / 109; Pulse 77; Resp 22; Temp 97.7(O); Pulse Ox 99% on R/A; Weight 72.57 kg; sv Height 5 ft. 7 in. (170.18 cm); Pain 10/10; 09:23 BP 127 / 83; Pulse 80; Resp 18; Temp 98.0(O); Pulse Ox 100% on R/A; mh5 09:30 Pain 9/10; sv 10:00 BP 137 / 91; Pulse 72; Resp 18; Pulse Ox 100% on R/A; ah 11:00 BP 124 / 91; Pulse 79; Resp 16; Pulse Ox 98% ; sv 12:00 BP 129 / 85; Pulse 70; Resp 16; Pulse Ox 98% ; sv 13:00 BP 119 / 73; Pulse 64; Resp 15; Pulse Ox 98% ; sv 07:40 Body Mass Index 25.06 (72.57 kg, 170.18 cm) sv MDM: 07:29 Data reviewed: vital signs, nurses notes, lab test result(s), radiologic studies. kdr Counseling: I had a detailed discussion with the patient and/or guardian regarding: the historical points, exam findings, and any diagnostic results supporting the discharge/admit diagnosis, lab results, radiology results. Special discussion: Based on the patient's Hx, exam, and Dx evaluation, there is no indication for emergent surgery or inpatient Tx. It is understood by the patient/guardian that if the Sx's persist or worsen they need to return immediately for re-evaluation. 11:16 Patient medically screened. kdr 14:53 ED course: After I had discussed the patient with Dr. Soliz and when Dr. Soliz had kdr evaluated the patient, he stated that his pain had improved and that he was amenable to discharge. I confirmed with the patient that he was agreeable to this plan.. 08/17 07:28 Order name: Basic Metabolic Panel; Complete Time: 08:14 kdr 08/17 07:28 Order name: CBC with Diff; Complete Time: 08:14 kdr 08/17 07:28 Order name: Creatinine for Radiology; Complete Time: 08:14 kdr 08/17 07:28 Order name: Hepatic Function; Complete Time: 08:14 kdr 08/17 07:28 Order name: Lipase; Complete Time: 08:14 kdr 08/17 11:43 Order name: Urine Dipstick--Ancillary (enter results) bd 08/17 07:29 Order name: CT Stone Protocol; Complete Time: 09:05 kdr 08/17 10:08 Order name: Abdomen 1 View (KUB) XRAY; Complete Time: 11:13 kdr 08/17 07:28 Order name: IV Saline Lock; Complete Time: 07:32 kdr 08/17 07:28 Order name: Labs collected and sent; Complete Time: 07:32 kdr 08/17 07:28 Order name: Urine Dipstick-Ancillary (obtain specimen); Complete Time: 11:00 kdr Administered Medications: 07:29 Drug: NS 0.9% 1000 ml Route: IV; Rate: 1 bolus; Site: right antecubital; sv 08:20 Follow up: Response: No adverse reaction; IV Status: Completed infusion; IV Intake: sv 1000ml 07:29 Drug: Zofran 4 mg Route: IVP; Site: right antecubital; sv 07:46 Follow up: Response: No adverse reaction sv 07:31 CANCELLED (Physician Discretion): TORadol - Ketorolac 15 mg IVP once sv 07:31 Drug: TORadol 30 mg Route: IVP; Site: right antecubital; sv 07:46 Follow up: Response: No adverse reaction; No change in condition; Pain is unchanged, sv physician notified 07:48 Drug: morphine 4 mg Route: IVP; Site: right antecubital; sv 08:30 Follow up: Response: No adverse reaction; No change in condition; Pain is unchanged, sv physician notified 08:30 Drug: Reglan 10 mg Route: IVP; Site: right antecubital; sv 09:30 Follow up: Response: No adverse reaction sv 08:35 Drug: Dilaudid 1 mg {Note: rass2.} Route: IVP; Site: right antecubital; sv 09:30 Follow up: Pain 9/10 Adult; Response: No adverse reaction; No change in condition; Pain sv is unchanged, physician notified; RASS: Restless (+1) 08:35 Drug: NS 0.9% 100 ml Route: IV; Rate: bolus; Site: right antecubital; sv 09:30 Follow up: Response: No adverse reaction; IV Status: Completed infusion; IV Intake: sv 101ml 09:48 Drug: [place] 10 mg-325 mg 1 tabs Route: PO; ah 10:45 Follow up: Response: No adverse reaction; No change in condition; Pain is unchanged, sv physician notified 11:15 Drug: morphine 4 mg Route: IVP; Site: right antecubital; sv 12:00 Follow up: Response: No adverse reaction; RASS: Alert and Calm (0) sv 11:50 Drug: Rocephin 1 grams Route: IV; Rate: calculated rate; Site: right antecubital; sv Disposition: 08/17/19 14:49 Discharged to Home. Impression: 6 mm Left mid ureteral kidney stone, Abdominal and pelvic pain. - Condition is Stable. - Discharge Instructions: Kidney Stones, [id number], Abdominal Pain, Adult, [id number]. - Prescriptions for Tylenol- Codeine #3 300-30 mg Oral Tablet - take 2 tablets by ORAL route every 6 hours As needed; 12 tablet. Zofran 4 mg Oral Tablet - take 1 tablet by ORAL route every 12 hours As needed; 6 tablet. Flomax 0.4 mg Oral Capsule, Sust. Release 24 hr - take 1 capsule by ORAL route once daily 1/2 hour following the same meal each day; 10 capsule. Bactrim DS 800- 160 mg Oral Tablet - take 1 tablet by ORAL route every 12 hours for 3 days; 6 tablet. - Medication Reconciliation Form, Thank You Letter, Antibiotic Education, Prescription Opioid Use form. - Follow up: Private Physician; When: 2 - 3 days; Reason: If symptoms return, Further diagnostic work-up, Recheck today's complaints, Continuance of care, Re-evaluation by your physician. - Problem is an acute exacerbation. - Symptoms have improved. Signatures: Dispatcher [employer] Lindsay Butcher RN RN Anand Bowers MD MD [facility] Maryam Chung RN RN Corrections: (The following items were deleted from the chart) 07:31 07:29 TORadol - Ketorolac 15 mg IVP once ordered. kdr 14:46 11:16 Hospitalization Ordered by Saul Soliz for Inpatient Admission. Preliminary kdr diagnosis is Unspecified renal colic; 6 mm left mid ureter kidney stone, intractable pain. Bed requested for Telemetry/MedSurg (Inpatient). Status is Inpatient Admission. Condition is Fair. Problem is new. Symptoms have improved. UTI on Admission? No. kdr 15:28 14:49 08/17/2019 14:49 Discharged to Home. Impression: 6 mm Left mid ureteral kidney sv stone; Abdominal and pelvic pain. Condition is Stable. Forms are Medication Reconciliation Form, Thank You Letter, Antibiotic Education, Prescription Opioid Use. Follow up: Private Physician; When: 2 - 3 days; Reason: If symptoms return, Further diagnostic work-up, Recheck today's complaints, Continuance of care, Re-evaluation by your physician. Problem is an acute exacerbation. Symptoms have improved. kdr
--- NOTE | 2019-08-17 11:17 | ER ---
Nurse's Notes [facility] Name: Orion Bass Age: 28 yrs Sex: Male : 1990 Arrival Date: 08/17/2019 Time: 07:12 Bed 20 Private MD: None, None Diagnosis: 6 mm Left mid ureteral kidney stone;Abdominal and pelvic pain Presentation: 08/17 07:17 Presenting complaint: Patient states: left flank pain started this morning. Transition sv of care: patient was not received from another setting of care. Onset of symptoms was August 17, 2019. Risk Assessment: Do you want to hurt yourself or someone else? Patient reports no desire to harm self or others. Initial Sepsis Screen: Does the patient meet any 2 criteria? No. Patient's initial sepsis screen is negative. Does the patient have a suspected source of infection? No. Patient's initial sepsis screen is negative. Care prior to arrival: None. 07:17 Method Of Arrival: Ambulatory sv 07:17 Acuity: WALTER 2 sv Triage Assessment: 07:17 General: Appears in no apparent distress. uncomfortable, well developed, Behavior is sv cooperative, appropriate for age, anxious, restless. Pain: Complains of pain in anterior aspect of left lateral abdomen and posterior aspect of left lateral abdomen Pain currently is 10 out of 10 on a pain scale. Quality of pain is described as sharp, Pain began "this morning" Is continuous, Noted to be grimacing, guarding, moaning, restless. Neuro: Level of Consciousness is awake, alert, obeys commands, Oriented to person, place, time, situation, Moves all extremities. Full function Gait is steady, Speech is normal. Respiratory: Airway is patent Respiratory effort is even, unlabored, Respiratory pattern is symmetrical, tachypnea. GI: Abdomen is flat. : Reports he has voided today but unsure what color it was. Derm: Skin is pink, warm \\T\\ dry. Musculoskeletal: Range of motion: intact in all extremities. Historical: - Allergies: 07:39 No Known Allergies; sv - PMHx: 07:39 Kidney stones; sv - PSHx: 07:39 Hernia repair; sv - Immunization history:: Adult Immunizations up to date. - Coronavirus screen:: The patient has NOT traveled to [place], [place], or [place] in the past 14 days. Proceed with normal triage process as indicated. - Ebola Screening: : No symptoms or risks identified at this time. Screenin:17 Abuse screen: Denies threats or abuse. Denies injuries from another. Nutritional sv screening: No deficits noted. Tuberculosis screening: No symptoms or risk factors identified. Fall Risk None identified. Assessment: 07:46 Reassessment: Patient appears in no apparent distress at this time. No changes from sv previously documented assessment. Patient and/or family updated on plan of care and expected duration. Pain level reassessed. Patient is alert, oriented x 3, equal unlabored respirations, skin warm/dry/pink. Informed Dr Bowers that pain is unchanged, medication order received. 08:25 Reassessment: Patient appears in no apparent distress at this time. No changes from sv previously documented assessment. Patient and/or family updated on plan of care and expected duration. Pain level reassessed. Patient is alert, oriented x 3, equal unlabored respirations, skin warm/dry/pink. GI: Pt is actively vomiting bile. 09:48 Reassessment: Patient appears in no apparent distress at this time. No changes from sv previously documented assessment. Patient and/or family updated on plan of care and expected duration. Pain level reassessed. Patient is alert, oriented x 3, equal unlabored respirations, skin warm/dry/pink. 11:15 Reassessment: Patient appears in no apparent distress at this time. No changes from sv previously documented assessment. Patient and/or family updated on plan of care and expected duration. Pain level reassessed. Patient is alert, oriented x 3, equal unlabored respirations, skin warm/dry/pink. 11:50 Reassessment: Patient appears in no apparent distress at this time. No changes from sv previously documented assessment. Patient and/or family updated on plan of care and expected duration. Pain level reassessed. Patient is alert, oriented x 3, equal unlabored respirations, skin warm/dry/pink. 13:00 Reassessment: Patient appears in no apparent distress at this time. Patient and/or sv family updated on plan of care and expected duration. Pain level reassessed. Patient is alert, oriented x 3, equal unlabored respirations, skin warm/dry/pink. 14:49 Reassessment: Patient appears in no apparent distress at this time. Patient and/or sv family updated on plan of care and expected duration. Pain level reassessed. Patient is alert, oriented x 3, equal unlabored respirations, skin warm/dry/pink. Patient denies pain at this time. Patient states feeling better. Patient states symptoms have improved. Vital Signs: 07:40 BP 160 / 109; Pulse 77; Resp 22; Temp 97.7(O); Pulse Ox 99% on R/A; Weight 72.57 kg; sv Height 5 ft. 7 in. (170.18 cm); Pain 10/10; 09:23 BP 127 / 83; Pulse 80; Resp 18; Temp 98.0(O); Pulse Ox 100% on R/A; mh5 09:30 Pain 9/10; sv 10:00 BP 137 / 91; Pulse 72; Resp 18; Pulse Ox 100% on R/A; ah 11:00 BP 124 / 91; Pulse 79; Resp 16; Pulse Ox 98% ; sv 12:00 BP 129 / 85; Pulse 70; Resp 16; Pulse Ox 98% ; sv 13:00 BP 119 / 73; Pulse 64; Resp 15; Pulse Ox 98% ; sv 07:40 Body Mass Index 25.06 (72.57 kg, 170.18 cm) sv ED Course: 07:12 Patient arrived in ED. mr 07:12 None, None is Private Physician. mr 07:13 Anand Bowers MD is Attending Physician. kdr 07:17 Arm band placed on Patient placed in an exam room, on a stretcher. sv 07:17 Patient has correct armband on for positive identification. Placed in gown. Bed in low sv position. Call light in reach. Pulse ox on. NIBP on. Door closed. Warm blanket given. Head of bed elevated. 07:20 Inserted saline lock: 20 gauge in right antecubital area, using aseptic technique. sv Blood collected. Flushed right antecubital with 5 ml normal saline. 07:21 Lindsay Hilliard RN is Primary Nurse. sv 07:39 Triage completed. sv 07:[address] via wheelchair. sv 08:04 CT Stone Protocol In Process Unspecified. EDMS 10:20 Patient moved to radiology via wheelchair. ah 10:25 Abdomen 1 View (KUB) XRAY In Process Unspecified. EDMS 11:15 Saul Soliz is Hospitalizing Provider. kdr 14:49 No provider procedures requiring assistance completed. IV discontinued, intact, sv bleeding controlled, No redness/swelling at site. Pressure dressing applied. Administered Medications: 07:29 Drug: NS 0.9% 1000 ml Route: IV; Rate: 1 bolus; Site: right antecubital; sv 08:20 Follow up: Response: No adverse reaction; IV Status: Completed infusion; IV Intake: sv 1000ml 07:29 Drug: Zofran 4 mg Route: IVP; Site: right antecubital; sv 07:46 Follow up: Response: No adverse reaction sv 07:31 CANCELLED (Physician Discretion): TORadol - Ketorolac 15 mg IVP once sv 07:31 Drug: TORadol 30 mg Route: IVP; Site: right antecubital; sv 07:46 Follow up: Response: No adverse reaction; No change in condition; Pain is unchanged, sv physician notified 07:48 Drug: morphine 4 mg Route: IVP; Site: right antecubital; sv 08:30 Follow up: Response: No adverse reaction; No change in condition; Pain is unchanged, sv physician notified 08:30 Drug: Reglan 10 mg Route: IVP; Site: right antecubital; sv 09:30 Follow up: Response: No adverse reaction sv 08:35 Drug: Dilaudid 1 mg {Note: rass2.} Route: IVP; Site: right antecubital; sv 09:30 Follow up: Pain 9/10 Adult; Response: No adverse reaction; No change in condition; Pain sv is unchanged, physician notified; RASS: Restless (+1) 08:35 Drug: NS 0.9% 100 ml Route: IV; Rate: bolus; Site: right antecubital; sv 09:30 Follow up: Response: No adverse reaction; IV Status: Completed infusion; IV Intake: sv 101ml 09:48 Drug: [place] 10 mg-325 mg 1 tabs Route: PO; ah 10:45 Follow up: Response: No adverse reaction; No change in condition; Pain is unchanged, sv physician notified 11:15 Drug: morphine 4 mg Route: IVP; Site: right antecubital; sv 12:00 Follow up: Response: No adverse reaction; RASS: Alert and Calm (0) sv 11:50 Drug: Rocephin 1 grams Route: IV; Rate: calculated rate; Site: right antecubital; sv Intake: 08:20 IV: 1000ml; Total: 1000ml. sv 09:30 IV: 101ml; Total: 1101ml. sv Outcome: 11:16 Decision to Hospitalize by Provider. kdr 14:49 Discharge ordered by . kdr 14:49 Discharged to home ambulatory. sv 14:49 Condition: stable 14:49 Discharge instructions given to patient, Instructed on discharge instructions, follow up and referral plans. medication usage, Demonstrated understanding of instructions, follow-up care, medications, Prescriptions given X 4. 15:28 Patient left the ED. sv Signatures: Dispatcher [employer] EDLindsay Andino RN RN sv Anand Bowers MD MD kdr Rivera, Unique Carrillo Maryam Santoyo, RN RN
[2019-08-17] MEDS ORDERED: CEFTRIAXONE/SWI 1gm 1 GM/10 ML SYR ONE (11:47)
[2019-08-17 11:55] LABS: Urine Blood 3+ (NEG); Urine Glucose NEGATIVE (NEG); Urine Protein NEGATIVE (NEG)
[2019-08-17 15:56] VITALS: TEMP 98
[2019-08-17 16:00] VITALS: O2SAT 98
[2019-08-17 16:03] VITALS: BP 119/73
== END 2019-08-17 15:28 | disposition home or self-care (01) ==
LOC: ER 07:09
DX: N21.1 Calculus in urethra (principal); Z87.442 Personal history of urinary calculi
CPT/HCPCS: 36415; 74018; 74176; 76377; 80048; 80076; 81003; 83690; 85025; 96361; 96374; 96375; 99284; J0696; J1170; J2405; J2765; J7030

== ENCOUNTER 2020-01-18 09:49 | Emergency (ER) | payer OTHER, SELFPAY ==
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
[2020-01-18 10:23] VITALS: BP 117/85; TEMP 97.9; O2SAT 99
--- OUTSIDE RECORDS SUMMARY | 2020-01-18 12:36 | XMS REPORT | Continuity of Care Document ---
:1990 Author Organization [facility] Address [address] [place] [address] Care Team Providers Name Role Phone Unavailable Unavailable Unavailable Problems Condition Condition Condition Status Onset Resolution Last Treating Co mments Source Name Details Category Date Date Treatment Clinician Date Adverse Adverse Problem Active [facility] effect of effect of Luke s - other other Memoria anti-commo anti-commo l n-cold n-cold Outpati drugs, drugs, ent initial initial Clinics encounter encounter Allergic Allergic Problem Active [facility] rhinitis, rhinitis, Luke [facility] - unspecifie unspecifie Me moria d d l seasonalit seasonalit Ou tpati y, y, ent unspecifie unspecifie Cl inics d trigger d trigger Intractabl Intractabl Problem Active [facility] migraine e migraine Anabela kes - without without Memoria status status l migrainosu migrainosu Ou tpati s, s, ent unspecifie unspecifie Cl inics d migraine d migraine type type Seasonal Seasonal Problem Active [facility] allergic allergic [facility] - rhinitis, rhinitis, Anthony jacquelyn unspecifie unspecifie l d trigger d trigger Outp ati ent Clinics Sinus Sinus Problem Active [facility] problem problem [facility] Migraine Migraine Problem Active [facility] Chronic Chronic Problem Active [facility] rhinitis rhinitis [facility] Allergies, Adverse Reactions, Alerts This patient has no known allergies or adverse reactions. Medications Ordered Filled Start Stop Current Ordering Indication Dosage Frequency Signature Comments Components Source Medication Medication Date Date Medication? Clinician (SIG) Name Name Opal Joseph Yes Birgit [address] [facility] 3-17 Reyes as needed [facility] - 00:00: for [facility]oria 00 nausea/vom l iting Outpati ent Clinics Nasonex Nasonex 2018-07 Yes Birgit [address] 1-06 Reyes in each [facility] - 00:00: nostril [facility] 00 l Outpati ent Clinics Topamax Topamax 2019- Yes Birgit [address] -06 Reyes [facility] - 00:[facility]: [facility] 00 l Outpati ent Clinics One Daily One Daily Yes Birgit as [facility] Mens Mens Reyes directed [facility] - [facility] Outpati ent Clinics Tylenol Tylenol Yes Birgit [address] Reyes as needed [facility] Outpati ent Clinics Procedures This patient has no known procedures. Encounters Start End Encounter Admission Attending Care Care Encounter Source Date/Time Date/Time Type Type Clinicians Facility Department ID 2019-12-17 2019-12-17 [facility] [id number] [facility] 10:40[facility]00 10:40:00 [facility] Medicine Outpati ent Clinics 2019-12-15 2019-12-15 [facility] [id number] [address] 08:51:00 08:51:00 [facility] Medicine Outpati ent Clinics 2019-12-09 2019-12-09 [facility] [id number] 13:40:00 13:40:00 [facility] Medicine Outpati ent Clinics 2019-12-06 2019-12-06 [facility] [id number] 11:24:00 11:24:00 [facility] Medicine Outpati ent Clinics 2019-10-05 2019-10-05 [facility] [id number] 08:45:00 08:45:00 [facility] Medicine Outpati ent Clinics 2019-06-22 2019-06-22 [facility] [id number] [facility] 15:31:00 15:31:00 [facility] Medicine Outpati ent Clinics 2019-05-26 2019-05-26 [facility] [id number] 14:00:00 14:00:00 [facility] Medicine Outpati ent Clinics Results This patient has no known results.
--- OUTSIDE RECORDS SUMMARY | 2020-01-18 12:36 | XMS REPORT ---
:1990 Author Organization [employer] Care Team Providers Name Role Phone Lisette Brisa Provider Role Unavailable Allergies No Known Allergies Problems Problem Type Condition Code Onset Dates Condition Statu s Problem Seasonal allergies J30.2 Active Problem Sinus problem J34.9 Active Problem Migraine G43.909 Active Problem Intractable migraine without G43.919 Active status migrainosus, unspecified migraine type Problem Allergic rhinitis, unspecified J30.9 Active seasonality, unspecified trigger Problem Chronic rhinitis J31.0 Active Problem Adverse effect of other T48.5X5A Acti ve tryl-qnxrds-mbld drugs, initial encounter Medications No Known Medications Results No Known Results Summary Purpose [employer] Submission
--- OUTSIDE RECORDS SUMMARY | 2020-01-18 12:36 | XMS REPORT ---
:1990 Author Organization [employer] Care Team Providers Name Role Phone Birgit Reyes Provider Role Unavailable Allergies, Adverse Reactions, Alerts Substance Reaction Event Type N.K.D.A. Info Not Available Non Drug Allergy Problems Problem Type Condition Code Onset Dates Condition Statu s Assessment Seasonal allergic rhinitis, J30.2 Active unspecified trigger Problem Allergic rhinitis, unspecified J30.9 Active seasonality, unspecified trigger Problem Migraine G43.909 Active Problem Seasonal allergies J30.2 Active Problem Seasonal allergic rhinitis, J30.2 Active unspecified trigger Problem Adverse effect of other T48.5X5A Acti ve xvna-hkopzl-kygv drugs, initial encounter Problem Intractable migraine without G43.919 Active status migrainosus, unspecified migraine type Problem Sinus problem J34.9 Active Problem Chronic rhinitis J31.0 Active Medications Medication Code Code Instructions Start End Status Dosage System Date Date Topamax [facility] 32312540032 25 MG Orally May 26, Active 1 table t Once a day in 2019 evening for migraine headache Tylenol ND 39769001434 325 MG Orally Active 1 caps ule every 4 hrs as needed Nasonex [facility] 93539803539 50 MCG/ACT May 26, Active 2 sprays in Nasally Once a 2018 each day nostril Zofran ND 14732131466 4 MG Orally September Active 1 tablet as Every 6-8 hours 2019 needed for nausea/vomi ting One Daily Mens [facility] 91585223992 - Orally Active as d irected Results No Known Results Summary Purpose [employer] Submission
--- OUTSIDE RECORDS SUMMARY | 2020-01-18 12:36 | XMS REPORT ---
[...] Adverse effect of other T48.5X5A Acti ve zbpc-cnkfai-shtm drugs, initial encounter Medications No Known Medications Results No Known Results Summary Purpose [employer] Submission
--- OUTSIDE RECORDS SUMMARY | 2020-01-18 12:36 | XMS REPORT ---
:1990 Author Organization [employer] Care Team Providers Name Role Phone ReyesBirgit Provider Role Unavailable Allergies No Known Allergies Problems Problem Type Condition Code Onset Dates Condition Statu s Assessment Aching pain R52 Active Assessment Nonintractable episodic headache, R51 Active unspecified headache type Problem Seasonal allergies J30.2 Active Problem Sinus problem J34.9 Active Problem Migraine G43.909 Active Problem Intractable migraine without G43.919 Active status migrainosus, unspecified migraine type Problem Allergic rhinitis, unspecified J30.9 Active seasonality, unspecified trigger Problem Chronic rhinitis J31.0 Active Problem Adverse effect of other T48.5X5A Acti ve zcvd-tygzad-yolj drugs, initial encounter Medications Medication Code Code Instructions Start End Status Dosage System Date Date One Daily Mens [facility] 04216681257 - Orally Active as d irected Nasonex ND 88223244292 50 MCG/ACT May 26, Active 2 sprays in Nasally Once a 2018 each day nostril Tylenol ND 53576487963 325 MG Orally Active 1 caps ule every 4 hrs as needed Zofran ND 26299080104 4 MG Orally September Active 1 tablet as Every 6-8 hours 2019 needed for nausea/vomi ting Topamax ND 56028231666 25 MG Orally May 26, Active 1 table t Once a day in 2019 evening for migraine headache Results No Known Results Summary Purpose [employer]Works Submission
== END 2020-01-18 10:19 | disposition home or self-care (01) ==
LOC: ER 09:49
DX: L55.1 Sunburn of second degree (principal); Z87.442 Personal history of urinary calculi
CPT/HCPCS: 99281

== ENCOUNTER 2022-03-21 09:04 | Emergency (ER) | payer OTHER ==
--- OUTSIDE RECORDS SUMMARY | 2022-03-21 09:09 | XMS REPORT | Continuity of Care Document ---
:1990 Author Organization [facility] t Address [address] [place] [address] Care Team Providers Name Role Phone Shay [place] Attending Clinician Unavailable Brisa Knox Attending Clinician Unavailable Problems This patient has no known problems. Allergies, Adverse Reactions, Alerts This patient has no known allergies or adverse reactions. Medications Ordered Filled Start Stop Current Ordering Indication Dosage Frequency Signature Comments Components Source Medication Medication Date Date Medication? Clinician (SIG) Name Name Opal Joseph 2019-0 Yes Charlotte 1 tablet Comm on 3-17 [place] as needed [facility] 00:00: for - [facility] 00 nausea/vom [facility] Nasonex Nasonex 2019- Yes Charlotte 2 sprays Co mmon 1-06 [place] in each [facility] 00:00: nostril - [facility] 00 [facility] Topamax Topamax 2019- Yes Charlotte 1 tablet Co mmon 1-06 [facility] 00:00: - [facility] 00 [facility] One Daily One Daily Yes Charlotte as Comm on Mens Mens [place]ee directed [facility] Tylenol Tylenol Yes Charlotte 1 capsule Com mon [place]ee as needed [facility] Procedures This patient has no known procedures. Encounters Start End Encounter Admission Attending Care Care Encounter Source Date/Time Date/Time Type Type Clinicians Facility Department ID 2021-10-04 Outpatient [place], STLMLC STLMLC [id number] Common 09:55:01 [place] [facility] 2021-08-15 Outpatient [place], STLMLC STLMLC [id number] Common 14:26:38 [place] [address] [facility] 2021-08-15 Outpatient [place], STLMLC STLMLC [id number] Common 14:25:40 [place] [address] [facility] 2021-08-15 Outpatient [place], STLMLC STLMLC [id number] Common 13:56:59 [place] [address] [facility] 2021-08-15 Outpatient [place], STLMLC STLMLC [id number] Common 13:52:12 [place] [address] [facility] 2021-08-15 Outpatient [place], STLMLC STLMLC [id number] Common 13:40:00 [place] [address] [facility] 2021-08-15 Outpatient Millender, STLMLC STLMLC [id number] Common 12:09:16 Brisa [address] [facility] 2021-08-15 Outpatient Millender, STLMLC STLMLC [id number] Common 11:14:14 Brisa [address] [facility] 2021-08-15 Outpatient Millender, STLMLC STLMLC [id number] Common 10:58:21 Brisa [address] [facility] 2022-02-18 2022-02-18 ambulatory STLMLC STLMLC [id number] Common 00:00:00 00:00:00 [facility] 2022-01-24 2022-01-24 ambulatory STLMLC STLMLC [id number] Common 00:00:00 00:00:00 [facility] 2021-08-03 2021-08-03 ambulatory STLMLC STLMLC [id number] Common 00:00:00 00:00:00 [facility] 2021-08-01 2021-08-01 ambulatory STLMLC STLMLC [id number] Common 00:00:00 00:00:00 [facility] 2021-07-27 2021-07-27 ambulatory STLMLC STLMLC [id number] Common 00:00:00 00:00:00 [facility] 2021-07-27 2021-07-27 ambulatory STLMLC STLMLC [id number] Common 00:00:00 00:00:00 [facility] 2021-07-26 2021-07-26 ambulatory STLMLC STLMLC [id number] Common 00:00:00 00:00:00 [facility] 2021-04-23 2021-04-23 Outpatient STLMLC STLMLC [id number] Common 00:00:00 00:00:00 [facility] 2021-04-11 2021-04-11 Outpatient STLMLC STLMLC [id number] Common 00:00:00 00:00:00 [facility] 2020-04-13 2020-04-13 Outpatient STLMLC STLMLC [id number] Common 00:00:00 00:00:00 [facility] 2020-02-09 2020-02-09 [id number] Common 10:40:00 10:40:00 [facility] [address] [facility] 2020-02-08 2020-02-08 [id number] Common 14:52:00 14:52:00 t [facility] [address] [facility] [address] [facility] 2019-12-17 2019-12-17 [facility] [id number] Common 10:40:00 10:40:00 t [facility] [address] [facility] [address] [facility] 2019-12-15 2019-12-15 [facility] [id number] Common 08:51:00 08:51:00 [facility] [address] [facility] [address] [facility] 2019-12-09 2019-12-09 [facility] [id number] Common 13:40:00 13:40:00 [address] [facility] [address] [facility] [address] [facility] 2019-12-06 2019-12-06 [id number] Common 11:24:00 11:24:00 [address] [facility] [address] [facility] [address] [facility] 2019-10-05 2019-10-05 Outpatient Cassandra Tru[facility]illot [id number] Common 08:45:00 08:45:[address] [facility] [address] [facility] [address] [facility] 2019-06-22 2019-06-22 Outpatient Cassandra Trujillot [id number] Common 15:31:00 15:31:[address] [facility] [address] [facility] [address] [facility] 2019-05-26 2019-05-26 Outpatient Cassandra Trujillot [id number] Common 14:00:00 14:00:[address] [facility] [address] [facility] [address] [facility] Results This patient has no known results.
[2022-03-21 09:49] LABS: Absolute Lymphocytes (CBC) 0.6 K/uL (0.7-4.9); Hematocrit 42.2 % (39.6-49.0); Lymphocytes % 7.2 % (15.3-44.8); MCV 89.3 fL (80-100); MPV 8.6 fL (7.6-11.3); RBC Red Blood Cell Count 4.73 M/uL (4.33-5.43)
[2022-03-21] MEDS ORDERED: KETOROLAC 30 MG/ML INJ ONE (09:49)
[2022-03-21] MEDS ORDERED: ONDANSETRON 4 MG/2 ML VIAL ONE (09:50)
[2022-03-21] MEDS ORDERED: NA CHLORIDE 0.9% 1,000 ML ONE (09:50)
[2022-03-21 10:01] LABS: Potassium 3.7 mmol/L (3.5-5.1)
--- NOTE | 2022-03-21 10:19 | RAD REPORT ---
EXAM DESCRIPTION: RAD - Chest Single View - 03/21/2022 10:05 am CLINICAL HISTORY: CONGESTION COMPARISON: Two view chest February 2018 TECHNIQUE: AP portable chest image was obtained 03/21/2022 10:05 am . FINDINGS: Lungs are clear. Heart and vasculature are normal. No measurable pleural effusion and no p neumothorax. No acute bony abnormality seen. No acute aortic findings suspected. IMPRESSION: No acute cardiopulmonary process. No significant change from comparison study.
[2022-03-21 10:40] LABS: Urine Blood Trace-intact (Negative); Urine Glucose Negative (Negative); Urine Protein Negative (Negative); Urine Specific Gravity 1.025 (1.005-1.030)
--- NOTE | 2022-03-21 11:39 | EDPHYS ---
Physician Documentation [facility] Name: Orion Bass Age: 31 yrs Sex: Male : 1990 Arrival Date: 03/21/2022 Time: 09:07 Bed 6 Private MD: ED Physician Frank Elliott HPI: 03/21 09:44 This 31 yrs old Male presents to ER via Ambulatory with complaints of jl9 Nausea/Vomiting, Headache.Patient recently exposed to the flu. . 09:44 The patient presents to the emergency department with nausea, vomiting, diarrhea. jl9 Onset: The symptoms/episode began/occurred 3 day(s) ago. Possible causes: sick contacts. The symptoms are aggravated by nothing. The symptoms are alleviated by nothing. Associated signs and symptoms: Pertinent positives: diarrhea, nausea, vomiting, Pertinent negatives: abdominal pain, dysuria. Severity of symptoms: Pain is currently a 4 / 10. Historical: - Allergies: 09:17 No Known Allergies; ph - PMHx: 09:17 Kidney stones; ph - Immunization history:: Adult Immunizations unknown. - Social history:: Smoking status: Patient/guardian denies using tobacco, Stopped _ months ago 6. ROS: 09:45 Eyes: Negative for injury, pain, redness, and discharge, ENT: Negative for injury, jl9 pain, and discharge, Neck: Negative for injury, pain, and swelling, Cardiovascular: Negative for chest pain, palpitations, and edema, Respiratory: Negative for shortness of breath, cough, wheezing, and pleuritic chest pain, Abdomen/GI: Negative for abdominal pain, nausea, vomiting, diarrhea, and constipation, Back: Negative for injury and pain, : Negative for injury, bleeding, discharge, and swelling, MS/Extremity: Negative for injury and deformity, Skin: Negative for injury, rash, and discoloration, Neuro: Negative for headache, weakness, numbness, tingling, and seizure, Psych: Negative for depression, anxiety, suicide ideation, homicidal ideation, and hallucinations, Allergy/Immunology: Negative for hives, rash, and allergies, Endocrine: Negative for neck swelling, polydipsia, polyuria, polyphagia, and marked weight changes, Hematologic/Lymphatic: Negative for swollen nodes, abnormal bleeding, and unusual bruising. 09:45 Constitutional: Positive for body aches, chills, fatigue, fever, malaise. Exam: 09:45 Constitutional: This is a well developed, well nourished patient who is awake, alert, jl9 and in no acute distress. Head/Face: Normocephalic, atraumatic. Eyes: Pupils equal round and reactive to light, extra-ocular motions intact. Lids and lashes normal. Conjunctiva and sclera are non-icteric and not injected. Cornea within normal limits. Periorbital areas with no swelling, redness, or edema. 09:45 ENT: Mucous membranes moist. Neck: Trachea midline, no thyromegaly or masses palpated, and no cervical lymphadenopathy. Supple, full range of motion without nuchal rigidity, or vertebral point tenderness. No Meningismus. Chest/axilla: Normal chest wall appearance and motion. Nontender with no deformity. No lesions are appreciated. Cardiovascular: Regular rate and rhythm with a normal S1 and S2. No gallops, murmurs, or rubs. Normal PMI, no JVD. No pulse deficits. Respiratory: Lungs have equal breath sounds bilaterally, clear to auscultation and percussion. No rales, rhonchi or wheezes noted. No increased work of breathing, no retractions or nasal flaring. Abdomen/GI: Soft, non-tender, with normal bowel sounds. No distension or tympany. No guarding or rebound. No evidence of tenderness throughout. Back: No spinal tenderness. No costovertebral tenderness. Full range of motion. Skin: Warm, dry with normal turgor. Normal color with no rashes, no lesions, and no evidence of cellulitis. MS/ Extremity: Pulses equal, no cyanosis. Neurovascular intact. Full, normal range of motion. Neuro: Awake and alert, GCS 15, oriented to person, place, time, and situation. Cranial nerves II-XII grossly intact. Motor strength 5/5 in all extremities. Sensory grossly intact. Cerebellar exam normal. Normal gait. Psych: Awake, alert, with orientation to person, place and time. Behavior, mood, and affect are within normal limits. Vital Signs: 09:15 BP 130 / 91; Pulse 97; Resp 18; Temp 98.4; Pulse Ox 96% on R/A; Weight 72.57 kg; Height ph 5 ft. 7 in. (170.18 cm); 09:30 BP 135 / 86; Pulse 88; Resp 14; Pulse Ox 97% on R/A; vg1 10:35 BP 127 / 95; Pulse 85; Resp 14; Pulse Ox 99% on R/A; vg1 11:30 BP 116 / 88; Pulse 80; Resp 15; Pulse Ox 100% on R/A; vg1 09:15 Body Mass Index 25.06 (72.57 kg, 170.18 cm) ph MDM: 09:26 Patient medically screened. 9 09:46 Data reviewed: vital signs, nurses notes. 11:38 Counseling: I had a detailed discussion with the patient and/or guardian regarding: the historical points, exam findings, and any diagnostic results supporting the discharge/admit diagnosis, lab results, radiology results, the need for outpatient follow up, to return to the emergency department if symptoms worsen or persist or if there are any questions or concerns that arise at home. Response to treatment: the patient's symptoms have markedly improved after treatment. 03/21 09:35 Order name: BMP; Complete Time: 10:20 03/21 09:35 Order name: CBC with Diff; Complete Time: 10:20 03/21 09:35 Order name: XRAY Chest (1 view); Complete Time: 10:20 03/21 09:35 Order name: SARS-COV-2 RT PCR (Document "Date of Onset" if Symptomatic); Complete Time: 11:38 03/21 09:35 Order name: Flu; Complete Time: 10:20 03/21 10:41 Order name: Urine Dipstick-Ancillary; Complete Time: 11: EDMS 03/21 09:35 Order name: Urine Dipstick-Ancillary (obtain specimen); Complete Time: 10:40 Administered Medications: 09:49 Drug: NS 0.9% 1000 ml Route: IV; Rate: 1000 ml; Site: left antecubital; em6 10:34 Follow up: IV Status: Completed infusion; IV Intake: 1000ml vg1 09:49 Drug: Ondansetron 4 mg Route: IVP; Site: left antecubital; em6 10:34 Follow up: Response: No adverse reaction; Marked relief of symptoms vg1 09:49 Drug: Ketorolac 15 mg Route: IVP; Site: left antecubital; em6 10:33 Follow up: Response: No adverse reaction; No change in condition vg1 Disposition: 18:09 Co-signature as Attending Physician, Frank Elliott DO I was immediately available on-site ms3 in the emergency department for consultation in the care of the patient.. Disposition Summary: 03/21/22 11:39 Discharge Ordered Location: Home jl9 Condition: Stable jl9 Diagnosis - SARS-associated coronavirus as the cause of diseases classified elsewhere jl9 Followup: jl9 - With: Private Physician - When: 1 - 2 days - Reason: Recheck today's complaints, Continuance of care, Re-evaluation by your physician Discharge Instructions: - Discharge Summary Sheet jl9 - COVID-19 jl9 Forms: - Medication Reconciliation Form jl9 - Thank You Letter jl9 - Antibiotic Education jl9 - Prescription Opioid Use jl9 Signatures: Dispatcher [employer] Dilma Azevedo RN RN ph Sims, Marcus, DO DO ms3 Thor Gonzalez jl9 Bita Coffman RN RN em6 Kelsea Urrutia RN vg1
--- NOTE | 2022-03-21 11:39 | ER ---
Nurse's Notes [facility] Name: Orion Bass Age: 31 yrs Sex: Male : 1990 Arrival Date: 03/21/2022 Time: 09:07 Bed 6 Private MD: Diagnosis: SARS-associated coronavirus as the cause of diseases classified elsewhere Presentation: 03/21 09:15 Chief complaint: Patient states: Fatigue, body aches, chills, headache, N/V/D, symptoms ph began 3 days ago, co-worker recently dx w/ flu. Coronavirus screen: Vaccine status: Patient reports being unvaccinated. Ebola Screen: No symptoms or risks identified at this time. Initial Sepsis Screen: Does the patient meet any 2 criteria? No. Patient's initial sepsis screen is negative. Does the patient have a suspected source of infection? No. Patient's initial sepsis screen is negative. Risk Assessment: Do you want to hurt yourself or someone else? Patient reports no desire to harm self or others. Onset of symptoms was March 21, 2022. 09:15 Method Of Arrival: Ambulatory ph 09:15 Acuity: WALTER 4 ph Triage Assessment: 09:17 General: Appears in no apparent distress. Behavior is calm, cooperative, appropriate ph for age. Pain: Complains of pain in headache, body aches. GI: Reports diarrhea, nausea, vomiting. Historical: - Allergies: 09:17 No Known Allergies; ph - PMHx: 09:17 Kidney stones; ph - Immunization history:: Adult Immunizations unknown. - Social history:: Smoking status: Patient/guardian denies using tobacco, Stopped _ months ago 6. Screenin:23 Abuse screen: Denies threats or abuse. Nutritional screening: No deficits noted. vg1 Tuberculosis screening: No symptoms or risk factors identified. Fall Risk No fall in past 12 months (0 pts). No secondary diagnosis (0 pts). IV access (20 points). Ambulatory Aid- None/Bed Rest/Nurse Assist (0 pts). Gait- Normal/Bed Rest/Wheelchair (0 pts) Mental Status- Oriented to own ability (0 pts). Total Baez Fall Scale indicates No Risk (0-24 pts). Assessment: :23 General: Appears in no apparent distress. comfortable, Behavior is calm, cooperative. vg1 Pain: Complains of pain in epigastric area, right upper quadrant and left upper quadrant Pain currently is 5 out of 10 on a pain scale. Pain began 2-3 days ago. Neuro: Level of Consciousness is awake, alert, obeys commands, Oriented to person, place, time, situation, Reports dizziness, headache a syncopal episode "passed out this morning; I got up and I was feeling really hot, so I went to go take a cold shower and when I got to the bathroom I blacked out" Denies hitting head. Cardiovascular: Patient's skin is warm and dry. Respiratory: Airway is patent Respiratory effort is even, unlabored. GI: Abdomen is round non-distended, Abd is soft Abd is non tender in epigastric area, right upper quadrant and left upper quadrant Reports diarrhea, nausea, vomiting. : No signs and/or symptoms were reported regarding the genitourinary system. EENT: No signs and/or symptoms were reported regarding the EENT system. Derm: Skin is pink, warm \\T\\ dry. Musculoskeletal: Circulation, motion, and sensation intact. 10:34 Reassessment: Patient appears in no apparent distress at this time. Patient and/or vg1 family updated on plan of care and expected duration. Pain level reassessed. Patient is alert, oriented x 3, equal unlabored respirations, skin warm/dry/pink. denies nausea, stated ABD pain still 5/10; provider notified. 11:37 Reassessment: Patient appears in no apparent distress at this time. No changes from vg1 previously documented assessment. Patient and/or family updated on plan of care and expected duration. Pain level reassessed. Patient is alert, oriented x 3, equal unlabored respirations, skin warm/dry/pink. Vital Signs: 09:15 BP 130 / 91; Pulse 97; Resp 18; Temp 98.4; Pulse Ox 96% on R/A; Weight 72.57 kg; Height ph 5 ft. 7 in. (170.18 cm); 09:30 BP 135 / 86; Pulse 88; Resp 14; Pulse Ox 97% on R/A; vg1 10:35 BP 127 / 95; Pulse 85; Resp 14; Pulse Ox 99% on R/A; vg1 11:30 BP 116 / 88; Pulse 80; Resp 15; Pulse Ox 100% on R/A; vg1 09:15 Body Mass Index 25.06 (72.57 kg, 170.18 cm) ph ED Course: 09:07 Patient arrived in ED. rg4 09:17 Kelsea Urrutia, RN is Primary Nurse. vg1 09:17 Triage completed. ph 09:17 Arm band placed on Patient placed in an exam room. ph 09:23 Patient has correct armband on for positive identification. Bed in low position. Call vg1 light in reach. Side rails up X 1. Pulse ox on. NIBP on. 09:25 Thor Gonzalez is PHCP. jl9 09:25 Tucker Ashley MD is Attending Physician. jl9 09:26 Frank Elliott DO is Attending Physician. jl9 09:28 Inserted saline lock: 20 gauge in left antecubital area, using aseptic technique. Blood em6 collected. 09:49 Flu Sent. em6 09:49 SARS-COV-2 RT PCR (Document "Date of Onset" if Symptomatic) Sent. em6 10:07 XRAY Chest (1 view) In Process Unspecified. EDMS 11:56 No provider procedures requiring assistance completed. IV discontinued, intact, vg1 bleeding controlled, No redness/swelling at site. Pressure dressing applied. Administered Medications: 09:49 Drug: NS 0.9% 1000 ml Route: IV; Rate: 1000 ml; Site: left antecubital; em6 10:34 Follow up: IV Status: Completed infusion; IV Intake: 1000ml vg1 09:49 Drug: Ondansetron 4 mg Route: IVP; Site: left antecubital; em6 10:34 Follow up: Response: No adverse reaction; Marked relief of symptoms vg1 09:49 Drug: Ketorolac 15 mg Route: IVP; Site: left antecubital; em6 10:33 Follow up: Response: No adverse reaction; No change in condition vg1 Medication: 09:23 VIS not applicable for this client. vg1 Intake: 10:34 IV: 1000ml; Total: 1000ml. vg1 Outcome: 11:39 Discharge ordered by . jl9 11:56 Discharged to home ambulatory. vg1 11:56 Condition: good 11:56 Discharge instructions given to patient, Instructed on discharge instructions, follow up and referral plans. Demonstrated understanding of instructions, follow-up care. 11:56 Patient left the ED. vg1 Signatures: Dispatcher [employer] EDMS Garcia, Dilma, RN RN ph Renan, Yuliana [email or web address] Kelsea Urrutia RN RN vg1 Thor Gonzalez9 Bita Coffman RN RN em6
[2022-03-21 12:20] VITALS: TEMP 98.4
[2022-03-21 12:34] VITALS: BP 116/88; O2SAT 100
== END 2022-03-21 11:56 | disposition home or self-care (01) ==
LOC: ER 09:04
DX: U07.1 COVID-19 (principal); Z87.442 Personal history of urinary calculi
CPT/HCPCS: 96361; 85025; 80048; 36415; 81003; 87804 ×2; 71045; 96375; 96374; 99284; U0003; J7030; J2405

== ENCOUNTER 2022-05-06 14:41 | Emergency (ER) | payer OTHER ==
--- OUTSIDE RECORDS SUMMARY | 2022-05-06 14:44 | XMS REPORT | Continuity of Care Document ---
:1990 Author Organization [facility] t Address [address] [place] [address] Care Team Providers Name Role Phone Shay [place] Attending Clinician Unavailable Brisa Knox Attending Clinician Unavailable Payers Payer Name Policy Type Policy Number Effective Date Expiration Date [facility] [id number] [facility] [id number] [facility] Problems Condition Condition Condition Status Onset Resolution Last Treating Co mments Source Name Details Category Date Date Treatment Clinician Date [id number] Gastroesop Problem Active Co mmon [facility] reflux - [facility] disease [facility] esophagiti Medica [facility] [place] Migraine Migraine Problem Active Commo n [facility] [id number] Chronic Problem Active Common rhinitis [facility] Sinus Sinus Problem Active Common problem problem [facility] Seasonal Seasonal Problem Active Commo n allergy allergies [facility] Allergies, Adverse Reactions, Alerts This patient has no known allergies or adverse reactions. Social History Social Habit Start Date Stop Date Quantity Comments Source History of Tobacco Use Co mmon [facility] Sex Assigned At Com mon [facility] Smoking Status Start Date Stop Date Source Former Smoker 2022-01-24 00:00:2022-01-24 00:00:00 Common S pirit - [facility] Current Smoker 2021-07-08 00:00:00 Common Spiri t - [facility] Medications Ordered Filled Start Stop Current Ordering Indication Dosage Frequency Signature Comments Components Source Medication Medication Date Date Medication? Clinician (SIG) Name Name Omeprazole Omeprazole No QD Omeprazole 40 MG 40 MG 9-22 40 MG 00:00: 00 Omeprazole Omeprazole No QD Omeprazole 40 MG 40 MG 9-22 40 MG 00:00: 00 Kenalog Kenalog 2020-0 No 40mg Common (Triamcinol (Triamcinol 5-29 S pirit one) one) 00:00: - [facility] Dexamethaso Dexamethaso 2020-0 No 10mg Common ne ne 5 Spirit 00:00: - [facility] Kenalog Kenalog 2020-0 No 40mg Common (Triamcinol (Triamcinol 5-29 S pirit one) one) 00:00: - [facility] Dexamethaso Dexamethaso 2020-0 No 10mg Common ne ne 5 Spirit 00:00: - [facility] Zofran Zofran 2020-0 Yes [place] 1 tablet Comm on 3-17 [place] as needed Spirit 00:00: for - [facility] nausea/vom [facility] Zofran 4 MG Zofran 4 MG 2020-0 No Zofran 4 3-17 MG 00:00: 00 Zofran 4 MG Zofran 4 MG 2020-0 No Zofran 4 3-17 MG 00:00: 00 Zofran 4 MG Zofran 4 MG 2020-0 No Zofran 4 3-17 MG 00:00: 00 Zofran 4 MG Zofran 4 MG 2020-0 No Zofran 4 3-17 MG 00:00: 00 Zofran 4 MG Zofran 4 MG 2020-0 No Zofran 4 3-17 MG 00:00: 00 Zofran 4 MG Zofran 4 MG 2020-0 No Zofran 4 3-17 MG 00:00: 00 Zofran 4 MG Zofran 4 MG 2020-0 No Zofran 4 3-17 MG 00:00: 00 Zofran 4 MG Zofran 4 MG 2020-0 No Zofran 4 3-17 MG 00:00: 00 Zofran 4 MG Zofran 4 MG 2020-0 No Zofran 4 3-17 MG 00:00: 00 Nasonex Nasonex 2019- Yes [place] 2 sprays Co mmon 1-06 [place] in each Spirit 00:00: nostril - [facility] Topamax Topamax 2018- Yes [place] 1 tablet Co mmon 06 [place] [facility] 00:00: - [facility] 00 [facility] Topamax 25 Topamax 25 2018-07 No 1{table Topamax 25 MG MG 1-06 t} MG 00:00: 00 Nasonex 50 Nasonex 50 2018-07 No 2{spray QD Nasonex 50 MCG/ACT MCG/ACT 1-06 s_in_ea MCG/ACT 00:00: ch_nost 00 ril} Topamax 25 Topamax 25 2018-07 No 1{table Topamax 25 MG MG 1-06 t} MG 00:00: 00 Nasonex 50 Nasonex 50 2018-07 No 2{spray QD Nasonex 50 MCG/ACT MCG/ACT 1-06 s_in_ea MCG/ACT 00:00: ch_nost 00 ril} Nasonex 50 Nasonex 50 2018-07 No 2{spray QD Nasonex 50 MCG/ACT MCG/ACT 1-06 s_in_ea MCG/ACT 00:00: ch_nost 00 ril} Topamax 25 Topamax 25 2018-07 No 1{table Topamax 25 MG MG 1-06 t} MG 00:00: 00 Nasonex 50 Nasonex 50 2018-07 No 2{spray QD Nasonex 50 MCG/ACT MCG/ACT 1-06 s_in_ea MCG/ACT 00:00: ch_nost 00 ril} Topamax 25 Topamax 25 2018-07 No 1{table Topamax 25 MG MG 1-06 t} MG 00:00: 00 Topamax 25 Topamax 25 2018-07 No 1{table Topamax 25 MG MG 1-06 t} MG 00:00: 00 Nasonex 50 Nasonex 50 2018-07 No 2{spray QD Nasonex 50 MCG/ACT MCG/ACT 1-06 s_in_ea MCG/ACT 00:00: ch_nost 00 ril} Topamax 25 Topamax 25 2018-07 No 1{table Topamax 25 MG MG 1-06 t} MG 00:00: 00 Nasonex 50 Nasonex 50 2018-07 No 2{spray QD Nasonex 50 MCG/ACT MCG/ACT 06 s_in_ea MCG/ACT 00:00: ch_nost 00 ril} Nasonex 50 Nasonex 50 2018-07 No 2{spray QD Nasonex 50 MCG/ACT MCG/ACT 06 s_in_ea MCG/ACT 00:00: ch_nost 00 ril} Topamax 25 Topamax 25 2018-07 No 1{table Topamax 25 MG MG 1-06 t} MG 00:00: 00 Nasonex 50 Nasonex 50 2018-07 No 2{spray QD Nasonex 50 MCG/ACT MCG/ACT 06 s_in_ea MCG/ACT 00:00: ch_nost 00 ril} Topamax 25 Topamax 25 2018-07 No 1{table Topamax 25 MG MG 1-06 t} MG 00:00: 00 Nasonex 50 Nasonex 50 2018-07 No 2{spray QD Nasonex 50 MCG/ACT MCG/ACT 06 s_in_ea MCG/ACT 00:00: ch_nost 00 ril} Topamax 25 Topamax 25 2018-07 No 1{table Topamax 25 MG MG 1-06 t} MG 00:00: 00 One Daily One Daily No One Daily Mens - Mens - Mens - Tylenol 325 Tylenol 325 No 1{capsu 6xD Tylenol MG MG le_as_n 325 MG eeded} ProAir HFA ProAir HFA No ProAir HFA 108 (90 108 (90 108 (90 Base) Base) Base) MCG/ACT MCG/ACT MCG/ACT One Daily One Daily No One Daily Mens - Mens - Mens - Tylenol 325 Tylenol 325 No 1{capsu 6xD Tylenol MG MG le_as_n 325 MG eeded} One Daily One Daily No One Daily Mens - Mens - Mens - Tylenol 325 Tylenol 325 No 1{capsu 6xD Tylenol MG MG le_as_n 325 MG eeded} One Daily One Daily No One Daily Mens - Mens - Mens - Omeprazole Omeprazole No QD Omeprazole 40 MG 40 MG 40 MG Tylenol 325 Tylenol 325 No 1{capsu 6xD Tylenol MG MG le_as_n 325 MG eeded} One Daily One Daily No One Daily Mens - Mens - Mens - Omeprazole Omeprazole No QD Omeprazole 40 MG 40 MG 40 MG Tylenol 325 Tylenol 325 No 1{capsu 6xD Tylenol MG MG le_as_n 325 MG eeded} Omeprazole Omeprazole No QD Omeprazole 40 MG 40 MG 40 MG One Daily One Daily No One Daily Mens - Mens - Mens - Tylenol 325 Tylenol 325 No 1{capsu 6xD Tylenol MG MG le_as_n 325 MG eeded} Omeprazole Omeprazole No QD Omeprazole 40 MG 40 MG 40 MG One Daily One Daily No One Daily Mens - Mens - Mens - Tylenol 325 Tylenol 325 No 1{capsu 6xD Tylenol MG MG le_as_n 325 MG eeded} Omeprazole Omeprazole No QD Omeprazole 40 MG 40 MG 40 MG One Daily One Daily No One Daily Mens - Mens - Mens - Tylenol 325 Tylenol 325 No 1{capsu 6xD Tylenol MG MG le_as_n 325 MG eeded} One Daily One Daily Yes [place] as Comm on Mens Mens [place] directed [facility] Tylenol Tylenol Yes [place] 1 capsule Com mon [place] as needed [facility] Omeprazole Omeprazole No QD Omeprazole 40 MG 40 MG 40 MG One Daily One Daily No One Daily Mens - Mens - Mens - Tylenol 325 Tylenol 325 No 1{capsu 6xD Tylenol MG MG le_as_n 325 MG eeded} ProAir HFA ProAir HFA No ProAir HFA 108 (90 108 (90 108 (90 Base) Base) Base) MCG/ACT MCG/ACT MCG/ACT Omeprazole Omeprazole No QD Omeprazole 40 MG 40 MG 40 MG Immunizations Ordered Immunization Filled Immunization Date Status Commen ts Source Name Name Lukas Gaytan 2019-12-17 Completed [facility] (Triamcinolone) (Triamcinolone) 11:41:00 - [facility] Dexamethasone Dexamethasone 2019-12-17 Completed Common S pirit 11:41:00 - [facility] Kenalog Kenalog 2019-12-17 Completed [facility] (Triamcinolone) (Triamcinolone) 11:41:00 [facility] Dexamethasone Dexamethasone 2019-12-17 Completed Common S pirit 11:41:00 - [facility] Vital Signs Vital Name Observation Time Observation Value Comments Source height 2022-01-24 08:20:00 65 [in_i] Common [facility] weight 2022-01-24 08:20:00 176 [lb_av] [facility] temperature 2022-01-24 08:20:00 98.1 [degF] [facility] bmi 2022-01-24 08:20:00 29.28 kg/m2 [facility] oximetry 2022-01-24 08:20:00 97 % [facility] respiratory rate 2022-01-24 08:20:00 16 /min Comm on [facility] blood pressure 2022-01-24 08:20:00 104 mm[Hg] Common [facility] - systolic [facility] blood pressure 2022-01-24 08:20:00 61 mm[Hg] Common [facility] - diastolic [facility] height 2021-04-11 13:20:00 65.50 [in_i] [facility] 2021-04-11 13:20:00 177.6 [lb_av] [facility] temperature 2021-04-11 13:20:00 97.9 [degF] [facility] bmi 2021-04-11 13:20:00 29.1 kg/m2 [facility] oximetry 2021-04-11 13:20:00 98 % [facility] respiratory rate 2021-04-11 13:20:00 16 /min Comm on [facility] blood pressure 2021-04-11 13:20:00 94 mm[Hg] Common [facility] - systolic [facility] blood pressure 2021-04-11 13:20:00 58 mm[Hg] Common [facility] - diastolic [facility] Procedures This patient has no known procedures. Encounters Start End Encounter Admission Attending Care Care Encounter Source Date/Time Date/Time Type Type Clinicians Facility Department ID 2021-10-04 Outpatient [place], STLMLC STLMLC [id number] Common 09:55:01 [place] [id number] [facility] 2021-08-15 Outpatient [place], STLMLC STLMLC [id number] Common 14:26:38 [place] 17965 [facility] 2021-08-15 Outpatient [place], STLMLC STLMLC [id number] Common 14:25:40 [place] 18309 [facility] 2021-08-15 Outpatient [place], STLMLC STLMLC [id number] Common 13:56:59 [place] 04014 [facility] 2021-08-15 Outpatient [place], STLMLC STLMLC [id number] Common 13:52:12 [place] 82873 [facility] 2021-08-15 Outpatient [place], STLMLC STLMLC [id number] Common 13:40:00 [place] 02325 [facility] 2021-08-15 Outpatient [place], STLMLC STLMLC [id number] Common 12:09:16 Brisa [id number] [facility] 2021-08-15 Outpatient [place], STLMLC STLMLC [id number] Common 11:14:14 Brisa 23111 [facility] 2021-08-15 Outpatient [place], STLMLC STLMLC [id number] Common 10:58:21 Brisa 82225 [facility] 2022-02-18 2022-02-18 (TEL) STLMLC STLMLC [id number] Co mmon 00:00:00 00:00:00 [facility] 2022-01-24 2022-01-24 OFFICE STLMLC STLMLC [id number] Co mmon 00:00:00 00:00:00 VISIT EST Spir it PT LEVEL 3 - [facility] 2021-08-03 2021-08-03 OFFICE STLMLC STLMLC [id number] Co mmon 00:00:00 00:00:00 VISIT [facility] ESTAB PT - [facility]I LEVEL 1 [facility] 2021-08-01 2021-08-01 (TEL) STLMLC STLMLC [id number] Co mmon 00:00:00 00:00:00 [facility] 2021-07-27 2021-07-27 OFFICE STLMLC STLMLC [id number] Co mmon 00:00:00 00:00:00 VISIT [facility] ESTAB PT - [facility] LEVEL 1 [facility] 2021-07-27 2021-07-27 (TEL) STLMLC STLMLC [id number] Co mmon 00:00:00 00:00:00 [facility] 2021-07-26 2021-07-26 (TEL) STLMLC STLMLC [id number] Co mmon 00:00:00 00:00:00 [facility] 2021-04-23 2021-04-23 (TEL) STLMLC STLMLC [id number] Co mmon 00:00:00 00:00:00 [facility] 2021-04-11 2021-04-11 OFFICE STLMLC STLMLC [id number] Co mmon 00:00:00 00:00:00 VISIT EST Spir it PT LEVEL 3 [facility] 2020-04-13 2020-04-13 Outpatient STLMLC STLMLC [id number] Common 00:00:00 00:00:00 [facility] 2020-02-09 2020-02-09 [facility] [id number] Common 10:40:00 10:40:[address] [facility] [address] [facility] 2020-02-08 2020-02-08 [facility] [id number] Common 14:52:00 14:52:00 t [facility] it Road [facility] 2019-12-17 2019-12-17 [facility] [id number] Common 10:40:00 10:40:[address] [facility] 2019-12-15 2019-12-15 [facility] [id number] Common 08:51:00 08:51:[address] [facility] 2019-12-09 2019-12-09 [facility] [id number] Common 13:40:00 13:40:[address] [facility] 2019-12-06 2019-12-06 [facility] [id number] Common 11:24:00 11:24:[address] [facility] 2019-10-05 2019-10-05 [facility] [id number] Common 08:45:00 08:45:[address] [facility] 2019-06-22 2019-06-22 [facility] [id number] Common 15:31:00 15:31:[address] [facility] 2019-05-26 2019-05-26 [facility] [id number] Common 14:00:00 14:00:[address] [facility] Results Test Description Test Time Test Comments Results Result Comments Source SARS-COV 2 Antigen SARS-COV 2 [facility] Antigen - [facility] SARS-COV 2 Antigen SARS-COV 2 [facility] Antigen - [facility]
[2022-05-06] MEDS ORDERED: IBUPROFEN 400 MG TAB ONE (15:20)
--- NOTE | 2022-05-06 16:17 | RAD REPORT ---
EXAM DESCRIPTION: RAD - Ankle Right 3 View - 05/06/2022 4:04 pm CLINICAL HISTORY: ankle pain COMPARISON: No comparisons FINDINGS: Moderate soft tissue swelling is seen along the lateral malleolus. No fracture or dislocat ion.
--- NOTE | 2022-05-06 16:20 | RAD REPORT ---
EXAM DESCRIPTION: RAD - Foot Right 3 View - 05/06/2022 4:04 pm CLINICAL HISTORY: foot pain Foot pain and swelling COMPARISON: FOOT W OBLIQUES dated 07/02/2008; Ankle Right 3 View dated 05/06/2022 FINDINGS: Soft tissue swelling is seen laterally. No fracture is present.
--- NOTE | 2022-05-06 16:26 | EDPHYS ---
Physician Documentation [facility] Name: Orion Bass Age: 31 yrs Sex: Male : 1990 Arrival Date: 05/06/2022 Time: 14:43 Bed 12 Private MD: ED Physician Lindsay Erickson HPI: 05/06 15:48 This 31 yrs old Male presents to ER via Wheelchair with complaints of Ankle Injury. jmm 15:48 The patient presents with an injury, pain. Onset: The symptoms/episode began/occurred jmm acutely, just prior to arrival. Associated signs and symptoms: Pertinent positives: swelling. Modifying factors: The symptoms are alleviated by nothing, the symptoms are aggravated by weight bearing. Patient states he stepped off his truck bed and stepped into a hole. Patient complains of pain and numbness to his right foot and ankle. . Historical: - Allergies: 15:15 No Known Allergies; vg1 - Home Meds: 15:15 None [Active]; vg1 - PMHx: 15:15 Kidney stones; vg1 - PSHx: 15:15 Umbilical Hernia; vg1 - Immunization history:: Client reports having NOT received the Covid vaccine. - Social history:: Smoking status: Patient/guardian denies using tobacco, Stopped _ months ago 6. ROS: 15:48 Constitutional: Negative for fever, chills, and weight loss, Cardiovascular: Negative jmm for chest pain, palpitations, and edema, Respiratory: Negative for shortness of breath, cough, wheezing, and pleuritic chest pain. 15:48 MS/extremity: Positive for injury or acute deformity. 15:48 All other systems are negative. Exam: 15:48 Constitutional: This is a well developed, well nourished patient who is awake, alert, jmm and in no acute distress. Head/Face: atraumatic. Eyes: EOMI, no conjunctival erythema appreciated ENT: Moist Mucus Membranes Neck: Trachea midline, Supple Chest/axilla: Normal chest wall appearance and motion. Cardiovascular: Regular rate and rhythm. No edema appreciated Respiratory: Normal respirations, no respiratory distress appreciated Abdomen/GI: Non distended Back: Normal ROM Skin: General appearance color normal 15:48 Musculoskeletal/extremity: Mild swelling noted to the right ankle, full dorsalis pedis pulse, compartments are soft, lateral malleolus is tender to palpation, no obvious deformity appreciated, neurovascular. 15:48 Skin: Appearance: Color: normal in color. 15:48 Neuro: Orientation: is normal, Mentation: is normal, Memory: is normal. 15:48 Psych: Behavior/mood is pleasant, cooperative. Vital Signs: 15:11 BP 130 / 92; Pulse 110; Resp 16; Temp 99.2(O); Pulse Ox 98% on R/A; Weight 81.65 kg; vg1 Height 5 ft. 7 in. (170.18 cm); Pain 6/10; 15:11 Body Mass Index 28.19 (81.65 kg, 170.18 cm) vg1 MDM: 15:01 Patient medically screened. [facility] 16:25 Data reviewed: vital signs, nurses notes. Data interpreted: Pulse oximetry: on room air kb is 98 %. Interpretation: normal. Counseling: I had a detailed discussion with the patient and/or guardian regarding: the historical points, exam findings, and any diagnostic results supporting the discharge/admit diagnosis, radiology results, the need for outpatient follow up, a orthopedic surgeon, to return to the emergency department if symptoms worsen or persist or if there are any questions or concerns that arise at home. 05/06 15:00 Order name: Ankle Right 3 View XRAY; Complete Time: 16:24 [facility] 05/06 15:00 Order name: Foot Right 3 View XRAY; Complete Time: 16:24 [facility] 05/06 16:24 Order name: Raza Wrap; Complete Time: 16:45 Administered Medications: 15:20 Drug: Ibuprofen 800 mg Route: PO; 1 16:51 Follow up: Response: No adverse reaction tp1 Disposition Summary: 05/06/22 16:25 Discharge Ordered Location: Home Condition: Stable kb Diagnosis - Sprain of ankle kb Followup: kb - With: Emergency Department - When: As needed - Reason: Worsening of condition Followup: kb - With: Private Physician - When: 2 - 3 days - Reason: Recheck today's complaints, Continuance of care, Re-evaluation by your physician Discharge Instructions: - Discharge Summary Sheet kb - Ankle Sprain, [id number] kb Forms: - Medication Reconciliation Form kb - Thank You Letter kb - Antibiotic Education kb - Prescription Opioid Use kb - Work release form tp1 Prescriptions: - Diclofenac Sodium 75 mg Oral tablet,delayed release (DR/EC) - take 1 tablet by ORAL route 2 times per day As needed; 30 tablet; Refills: 0, kb Product Selection Permitted Addendum: 05/09/2022 03:34 STAFF ATTESTATION STATEMENT: I was immediately available onsite in the emergency s d2 department for consultation in the care of this patient. I did not see or examine this patient. Lindsay Erickson MD. Signatures: Dispatcher [employer] EDYudy Villegas FNP-C FNP-Lamont Parry PA PA jmm Garcia, Victoria RN RN vg1 Lindsay Erickson MD MD sd2 Aurora Sharpe RN tp1 Corrections: (The following items were deleted from the chart) 05/06 15:16 15:15 Home Meds: Flomax Oral; vg1 vg1 15:16 15:15 Home Meds: Zofran Oral; vg1 vg1
--- NOTE | 2022-05-06 16:26 | ER ---
Nurse's Notes [facility] Name: Orion Bass Age: 31 yrs Sex: Male : 1990 Arrival Date: 05/06/2022 Time: 14:43 Bed 12 Private MD: Diagnosis: Sprain of ankle Presentation: 05/06 15:11 Chief complaint: Patient states: Stepped off bed of truck and stepped into a hole in 1 grass and heard a pop in Right Ankle. Coronavirus screen: Vaccine status: Patient reports being unvaccinated. Client denies travel out of the [place] in the last 14 days. Ebola Screen: Patient negative for fever greater than or equal to 101.5 degrees Fahrenheit, and additional compatible Ebola Virus Disease symptoms Patient denies exposure to infectious person. Initial Sepsis Screen: Does the patient meet any 2 criteria? No. Patient's initial sepsis screen is negative. Does the patient have a suspected source of infection? No. Patient's initial sepsis screen is negative. Risk Assessment: Do you want to hurt yourself or someone else? Patient reports no desire to harm self or others. Onset of symptoms was May 06, 2022. 15:11 Method Of Arrival: Wheelchair vg1 15:11 Acuity: WALTER 4 vg1 Triage Assessment: 15:15 General: Appears uncomfortable, Behavior is calm, cooperative. Pain: Complains of pain vg1 in right ankle Pain currently is 6 out of 10 on a pain scale. Pain began 1 hour ago. Cardiovascular: Capillary refill < 3 seconds in right toes Pulses are palpable in right dorsalis pedis artery. Musculoskeletal: Swelling present in right ankle. Historical: - Allergies: 15:15 No Known Allergies; vg1 - Home Meds: 15:15 None [Active]; vg1 - PMHx: 15:15 Kidney stones; vg1 - PSHx: 15:15 Umbilical Hernia; vg1 - Immunization history:: Client reports having NOT received the Covid vaccine. - Social history:: Smoking status: Patient/guardian denies using tobacco, Stopped _ months ago 6. Screenin:56 Abuse screen: Denies threats or abuse. Denies injuries from another. Nutritional tp1 screening: No deficits noted. Tuberculosis screening: No symptoms or risk factors identified. Fall Risk No fall in past 12 months (0 pts). No secondary diagnosis (0 pts). No IV (0 pts). Ambulatory Aid- None/Bed Rest/Nurse Assist (0 pts). Gait- Impaired (20 pts.). Mental Status- Oriented to own ability (0 pts). Assessment: 16:30 General: Appears in no apparent distress. comfortable, Behavior is calm, cooperative. tp1 Pain: Complains of pain in right ankle Pain does not radiate. Pain currently is 5 out of 10 on a pain scale. Neuro: Level of Consciousness is awake, alert, obeys commands, Oriented to person, place, time, situation. Cardiovascular: Capillary refill < 3 seconds in bilateral toes Patient's skin is warm and dry. Pulses are palpable in right posterior tibial artery and right dorsalis pedis artery. Respiratory: Airway is patent Respiratory effort is even, unlabored. Derm: Skin is pink, warm \T\ dry. Musculoskeletal: Circulation, motion, and sensation intact. limited rang of motion in right ankle. Vital Signs: 15:11 BP 130 / 92; Pulse 110; Resp 16; Temp 99.2(O); Pulse Ox 98% on R/A; Weight 81.65 kg; vg1 Height 5 ft. 7 in. (170.18 cm); Pain 6/10; 15:11 Body Mass Index 28.19 (81.65 kg, 170.18 cm) vg1 ED Course: 14:43 Patient arrived in ED. as 14:54 Lamont Minaya PA is PHCP. [facility] 14:54 Lindsay Erickson MD is Attending Physician. [facility] 15:15 Triage completed. vg1 15:15 Arm band placed on. vg1 15:51 PHCP role handed off by Lamont Minaya PA kb 15:51 Yudy Stout FNP-C is PHCP. kb 16:06 Ankle Right 3 View XRAY In Process Unspecified. EDMS 16:06 Foot Right 3 View XRAY In Process Unspecified. EDMS 16:57 No provider procedures requiring assistance completed. Patient did not have IV access tp1 during this emergency room visit. Administered Medications: 15:20 Drug: Ibuprofen 800 mg Route: PO; vg1 16:51 Follow up: Response: No adverse reaction tp1 Medication: 16:57 VIS not applicable for this client. tp1 Outcome: 16:25 Discharge ordered by . issac 16:57 Discharged to home via wheelchair. tp1 16:57 Condition: good 16:57 Discharge instructions given to patient, Instructed on discharge instructions, follow up and referral plans. medication usage, Demonstrated understanding of instructions, follow-up care, medications, Prescriptions given X 1. 16:57 Patient left the ED. tp1 Signatures: Dispatcher [employer] EDMS Yudy Stout, OZZY COURTROOM REPORTER-Lamont Parry PA PA jmm Martinez, Amelia as Garcia, Victoria, RN RN vg1 Aurora Sharpe RN RN tp1 Corrections: (The following items were deleted from the chart) 15:16 15:15 Home Meds: Flomax Oral; vg1 vg1 15:16 15:15 Home Meds: Zofran Oral; vg1 vg1 16:56 16:30 Pain: Complains of pain in right ankle tp1 tp1
[2022-05-06 17:02] VITALS: BP 130/92; TEMP 99.2; O2SAT 98
== END 2022-05-06 16:57 | disposition home or self-care (01) ==
LOC: ER 14:41
DX: S93.401A Sprain of unspecified ligament of right ankle, initial encounter (principal); X50.1XXA Overexertion from prolonged static or awkward postures, initial encounter; Y93.89 Activity, other specified; Y92.9 Unspecified place or not applicable
CPT/HCPCS: 99283

== ENCOUNTER 2022-06-11 16:36 | Emergency (ER) | payer OTHER ==
--- OUTSIDE RECORDS SUMMARY | 2022-06-11 16:39 | XMS REPORT | Continuity of Care Document ---
:1990 Author Organization [facility] t Address [address] [place] [address] Care Team Providers Name Role Phone [place] go Attending Clinician Unavailable Brisa Knox Attending Clinician Unavailable Payers Payer Name Policy Type Policy Number Effective Date Expiration Date [facility] [id number] [facility] [id number] [facility] Problems Condition Condition Condition Status Onset Resolution Last Treating Co mments Source Name Details Category Date Date Treatment Clinician Date [id number] Gastroesop Problem Active Co [facility]mon [facility] reflux - [facility] disease [facility] Migraine Migraine Problem Active Commo n [facility] [id number] Chronic Problem Active Common rhinitis [facility] Sinus Sinus Problem Active Common problem problem [facility] Seasonal Seasonal Problem Active Commo n allergy allergies [facility] Allergies, Adverse Reactions, Alerts This patient has no known allergies or adverse reactions. Social History Social Habit Start Date Stop Date Quantity Comments Source History of Tobacco Use Co mmon [facility] Sex Assigned At Com mon [facility] Smoking Status Start Date Stop Date Source Former Smoker 2022-01-24 00:00:00 2022-01-24 00:00:00 Common S pirit - [facility] Current Smoker 2021-07-08 00:00:00 Common Spiri t [facility] Medications Ordered Filled Start Stop [...] S pirit one) one) 00:00: - [facility] Dexamethaso Dexamethaso 2020-0 No 10mg Common ne ne 5 Spirit 00:00: - [facility] Kenalog Kenalog 2020-0 No 40mg Common (Triamcinol (Triamcinol 5-29 S pirit one) one) 00:00: - [facility] Dexamethaso Dexamethaso 2020-0 No 10mg Common ne ne 5 Spirit 00:00: - [facility] Zofran Zofran 2020-0 Yes [place] 1 tablet Comm on 3-17 [place] as needed Spirit 00:00: for - [facility] nausea/vom [facility] Zofran 4 MG Zofran 4 MG 2020-0 [...] 2019- Yes [place] 2 sprays Co mmon - [place] in each Spirit 00:00: nostril - [facility] 00 [facility] Topamax Topamax 2018- Yes [place] 1 tablet Co mmon 07-26 [place] Spirit 00:00: - [facility] 00 [facility] Topamax 25 Topamax 25 2018-07 [...] No 2{spray QD Nasonex 50 MCG/ACT MCG/ACT -06 s_in_ea MCG/ACT 00:00: ch_nost 00 ril} Topamax [...] No 2{spray QD Nasonex 50 MCG/ACT MCG/ACT 07-26 s_in_ea MCG/ACT 00:00: ch_nost 00 ril} Nasonex 50 Nasonex 50 2018-07 No 2{spray QD Nasonex 50 MCG/ACT MCG/ACT 07-26 s_in_ea MCG/ACT 00:00: ch_nost 00 ril} Topamax 25 Topamax 25 2018-07 No 1{table Topamax 25 MG MG 1-06 t} MG 00:00: 00 Nasonex 50 Nasonex 50 2018-07 No 2{spray QD Nasonex 50 MCG/ACT MCG/ACT 07-26 s_in_ea MCG/ACT 00:00: ch_nost 00 ril} Topamax 25 Topamax 25 2018-07 No 1{table Topamax 25 MG MG 1-06 t} MG 00:00: 00 Nasonex 50 Nasonex 50 2018-07 No 2{spray QD Nasonex 50 MCG/ACT MCG/ACT 07-26 s_in_ea MCG/ACT 00:00: ch_nost 00 ril} Topamax [...] Yes [place] as Comm on Mens Mens [place] directed [facility] Tylenol Tylenol Yes [place] 1 capsule Com mon [place] as needed [facility] Omeprazole Omeprazole No QD Omeprazole 40 MG [...] Completed [facility] (Triamcinolone) (Triamcinolone) 11:41:00 - [facility] Dexamethasone Dexamethasone 2019-12-17 Completed Common S pirit 11:41:00 - [facility] Kenalog Kenalog 2019-12-17 Completed [facility] (Triamcinolone) (Triamcinolone) 11:41:00 - [facility] Dexamethasone Dexamethasone 2019-12-17 Completed Common S pirit 11:41:00 - [facility] Vital Signs Vital Name Observation Time Observation Value Comments Source height 2022-01-24 08:20:00 65 [in_i] Common S [facility] weight 2022-01-24 08:20:00 176 [lb_av] [facility] temperature 2022-01-24 08:20:00 98.1 [degF] [facility] bmi 2022-01-24 08:20:00 29.28 kg/m2 [facility] oximetry 2022-01-24 08:20:00 97 % [facility] respiratory rate 2022-01-24 08:20:00 16 /min Comm on [facility] blood pressure 2022-01-24 08:20:00 104 mm[Hg] Common [facility] - systolic [facility] blood pressure 2022-01-24 08:20:00 61 mm[Hg] Common [facility] - diastolic [facility] height 2021-04-11 13:20:00 65.50 [in_i] Common S pirit [facility] weight 2021-04-11 13:20:00 177.6 [lb_av] Common [facility] temperature 2021-04-11 13:20:00 97.9 [degF] [facility] bmi 2021-04-11 13:20:00 29.1 kg/m2 [facility] oximetry 2021-04-11 13:20:00 98 % [facility] respiratory rate 2021-04-11 13:20:00 16 /min Comm on [facility] blood pressure 2021-04-11 13:20:00 94 mm[Hg] Common [facility] - systolic [facility] blood pressure 2021-04-11 13:20:00 58 mm[Hg] Common [facility] - diastolic [facility] Procedures This patient has no known procedures. Encounters Start End Encounter Admission Attending Care Care Encounter Source Date/Time Date/Time Type Type Clinicians Facility Department ID 2021-10-04 Outpatient Shay, STLMLC STLMLC [id number] Common 09:55:01 [place] [address] [facility] 2021-08-15 Outpatient [place], STLMLC STLMLC [id number] Common 14:26:38 [place] [address] [facility] 2021-08-15 Outpatient [place], STLMLC STLMLC [id number] Common 14:25:40 [place] [address] [facility] 2021-08-15 Outpatient [place], STLMLC STLMLC [id number] Common 13:56:59 [place] [address] [facility] 2021-08-15 Outpatient [place], STLMLC STLMLC [id number] Common 13:52:12 [place] [address] [facility] 2021-08-15 Outpatient [place], STLMLC STLMLC [id number] Common 13:40:00 [place] [address] [facility] 2021-08-15 Outpatient [place], STLMLC STLMLC [id number] Common 12:09:16 Brisa 87[address] [facility] 2021-08-15 Outpatient [place], STLMLC STLMLC [id number] Common 11:14:14 Brisa 09106 [facility] 2021-08-15 Outpatient [place], STLMLC STLMLC [id number] Common 10:58:21 Brisa 89262 [facility] 2022-02-18 2022-02-18 (TEL) STLMLC STLMLC [id number] Co mmon 00:00:00 00:00:00 [facility] 2022-01-24 2022-01-24 OFFICE STLMLC STLMLC [id number] Co mmon 00:00:00 00:00:00 VISIT EST Spir it PT LEVEL 3 - [facility] 2021-08-03 2021-08-03 OFFICE STLMLC STLMLC [id number] Co mmon 00:00:00 00:00:00 VISIT [facility] ESTAB PT - CHI LEVEL 1 [facility] 2021-08-01 2021-08-01 (TEL) STLMLC STLMLC [id number] Co mmon 00:00:00 00:00:00 [facility] 2021-07-27 2021-07-27 OFFICE STLMLC STLMLC [id number] Co mmon 00:00:00 00:00:00 VISIT [facility] ESTAB PT - CHI LEVEL 1 [facility] 2021-07-27 2021-07-27 (TEL) STLMLC STLMLC [id number] Co mmon 00:00:00 00:00:00 [facility] 2021-07-26 2021-07-26 (TEL) STLMLC STLMLC [id number] Co mmon 00:00:00 00:00:00 [facility] 2021-04-23 2021-04-23 (TEL) STLMLC STLMLC [id number] Co mmon 00:00:00 00:00:00 [facility] 2021-04-11 2021-04-11 OFFICE STLMLC STLMLC [id number] Co mmon 00:00:00 00:00:00 VISIT EST Spir it PT LEVEL 3 [facility] 2020-04-13 2020-04-13 Outpatient STLMLC STLMLC [id number] Common 00:00:00 00:00:00 [facility] 2020-02-09 2020-02-09 [id number] Common 10:40:00 10:40:[address] [facility] [address] [facility] 2020-02-08 2020-02-08 [facility] [id number] Common 14:52:00 14:52:00 t [facility] it Road [facility] 2019-12-17 2019-12-17 [facility] [id number] Common 10:40:00 10:40:[address] [facility] 2019-12-15 2019-12-15 [facility] [id number] Common 08:51:00 08:51:[address] [facility] 2019-12-09 2019-12-09 [facility] [id number] Common 13:40:00 13:40:[address] [facility] 2019-12-06 2019-12-06 [facility] [id number] Common 11:24:00 11:24:[address] [facility] 2019-10-05 2019-10-05 [facility] [id number] Common 08:45:00 08:45:[address] [facility] 2019-06-22 2019-06-22 [facility] [id number] Common 15:31:00 15:31:[address] [facility] 2019-05-26 2019-05-26 [facility] [id number] Common 14:00:00 14:00:[address] [facility] Results Test Description Test Time Test Comments Results Result Comments Source SARS-COV 2 Antigen SARS-COV 2 Antigen SARS-COV 2 Antigen SARS-COV 2 Antigen
[2022-06-11] MEDS ORDERED: KETOROLAC 30 MG/ML INJ ONE (16:58)
--- NOTE | 2022-06-11 16:59 | ER ---
Nurse's Notes [facility] Name: Orion Bass Age: 31 yrs Sex: Male : 1990 Arrival Date: 06/11/2022 Time: 16:38 Bed 9 Private MD: Diagnosis: Otitis media, unspecified, left ear;Other otitis externa, left ear Presentation: 06/11 16:41 Chief complaint: Patient states: Left ear pain since this morning. Dizziness X 2 hours. ld1 Coronavirus screen: At this time, the client does not indicate any symptoms associated with coronavirus-19. Ebola Screen: No symptoms or risks identified at this time. Initial Sepsis Screen: Does the patient meet any 2 criteria? No. Patient's initial sepsis screen is negative. Does the patient have a suspected source of infection? No. Patient's initial sepsis screen is negative. Risk Assessment: Do you want to hurt yourself or someone else? Patient reports no desire to harm self or others. Onset of symptoms was June 11, 2022. 16:41 Method Of Arrival: Ambulatory ld1 16:41 Acuity: WALTER 4 ld1 Triage Assessment: 16:41 General: Appears in no apparent distress. comfortable, Behavior is calm, cooperative, ld1 appropriate for age. Pain: Complains of pain in left ear Pain does not radiate. Pain currently is 9 out of 10 on a pain scale. EENT: Reports pain in left ear. Neuro: Level of Consciousness is awake, alert, obeys commands, Oriented to person, place, time, situation. Cardiovascular: Capillary refill < 3 seconds Patient's skin is warm and dry. Respiratory: Airway is patent Respiratory effort is even, unlabored. GI: Abdomen is flat, non-distended. : No signs and/or symptoms were reported regarding the genitourinary system. : No signs and/or symptoms were reported regarding the genitourinary system. Historical: - Allergies: 16:41 No Known Allergies; ld1 - PMHx: 16:41 Kidney stones; ld1 - PSHx: 16:41 Umbilical hernia; ld1 - Immunization history:: Adult Immunizations up to date, Client reports receiving the 2nd dose of the Covid vaccine. - Social history:: Smoking status: Patient denies any tobacco usage or history of. Patient/guardian denies using alcohol. Screenin:45 Abuse screen: Denies threats or abuse. Denies injuries from another. Nutritional kb3 screening: No deficits noted. Tuberculosis screening: No symptoms or risk factors identified. Fall Risk None identified. Assessment: 16:45 Reassessment: Patient appears in no apparent distress at this time. General: Appears in kb3 no apparent distress. Behavior is calm, cooperative, received care of pt from triage reporting left ear pain/pressure radiating into left jaw. Reports he had the flu last weekend and has been congested with nasal drainage and sinus pressure. States taking no OTC medications at this time. EENT: Reports nasal congestion since 06/04/2022 nasal discharge that is yellow pain in left ear. Vital Signs: 16:41 BP 141 / 99; Pulse 99; Resp 18; Temp 97.9(TE); Pulse Ox 99% on R/A; Weight 79.38 kg; ld1 Height 5 ft. 7 in. (170.18 cm); Pain 9/10; 16:41 Body Mass Index 27.41 (79.38 kg, 170.18 cm) ld1 ED Course: 16:38 Patient arrived in ED. mr 16:41 Triage completed. ld1 16:41 Arm band placed on right wrist. ld1 16:43 Yudy Stout FNP-C is [facility]. kb 16:43 Efrain Mares MD is Attending Physician. kb 16:45 Patient has correct armband on for positive identification. kb3 16:45 No provider procedures requiring assistance completed. Patient did not have IV access kb3 during this emergency room visit. 17:15 Brenda Edgar, RN is Primary Nurse. kb3 Administered Medications: 17:03 Drug: Ketorolac 30 mg Route: IM; Site: right ventrogluteal; kb3 17:10 Follow up: Response: No adverse reaction kb3 Medication: 16:45 VIS not applicable for this client. kb3 Outcome: 16:58 Discharge ordered by . kb 17:10 Discharged to home ambulatory. kb3 17:10 Condition: stable 17:10 Discharge instructions given to patient, Instructed on discharge instructions, follow up and referral plans. medication usage, Demonstrated understanding of instructions, follow-up care, medications, Prescriptions given X 2. 17:16 Patient left the ED. kb3 Signatures: Yudy Stout FNP-C FNP-Jacquelyn Hooper mr HernandezGiana ma, RN RN ld1 Brenda Edgar, RN RN kb3 Corrections: (The following items were deleted from the chart) 17:06 17:04 Reassessment: Patient appears in no apparent distress at this time. kb3 kb3 17:06 17:04 General: Appears in no apparent distress. Behavior is calm, cooperative, received kb3 care of pt from triage reporting left ear pain/pressure radiating into left jaw. Reports he had the flu last weekend and has been congested with nasal drainage and sinus pressure. States taking no OTC medications at this time. kb3 17: 17:04 EENT: Reports nasal congestion since 06/04/2022 nasal discharge that is yellow kb3 pain in left ear kb3
--- NOTE | 2022-06-11 16:59 | EDPHYS ---
Physician Documentation [facility] Name: Orion Bass Age: 31 yrs Sex: Male : 1990 Arrival Date: 06/11/2022 Time: 16:38 Bed 9 Private MD: ED Physician Efrain Mares HPI: 06/11 16:57 This 31 yrs old Male presents to ER via Ambulatory with complaints of Ear Pain, kb Dizziness. 16:57 The patient presents with pain, tenderness. The complaints affect the left ear. Onset: kb The symptoms/episode began/occurred this morning. Modifying factors: The symptoms are alleviated by nothing, the symptoms are aggravated by nothing. Associated signs and symptoms: The patient has no apparent associated signs or symptoms. Severity of symptoms: At their worst the symptoms were moderate in the emergency department the symptoms are unchanged. The patient has not experienced similar symptoms in the past. The patient has not recently seen a physician. Historical: - Allergies: 16:41 No Known Allergies; ld1 - PMHx: 16:41 Kidney stones; ld1 - PSHx: 16:41 Umbilical hernia; ld1 - Immunization history:: Adult Immunizations up to date, Client reports receiving the 2nd dose of the Covid vaccine. - Social history:: Smoking status: Patient denies any tobacco usage or history of. Patient/guardian denies using alcohol. ROS: 16:54 Constitutional: Negative for fever, chills, and weight loss. kb 16:54 ENT: Positive for ear pain. 16:54 All other systems are negative. Exam: 16:54 Constitutional: This is a well developed, well nourished patient who is awake, alert, kb and in no acute distress. Head/Face: Normocephalic, atraumatic. Cardiovascular: Regular rate and rhythm with a normal S1 and S2. No gallops, murmurs, or rubs. No pulse deficits. Respiratory: Respirations even and unlabored. No increased work of breathing. Talking in full sentences Skin: Warm, dry with normal turgor. Normal color. MS/ Extremity: Pulses equal, no cyanosis. Neurovascular intact. Full, normal range of motion. Neuro: Awake and alert, GCS 15, oriented to person, place, time, and situation. Moves all extremities. Normal gait. 16:54 ENT: External ear(s): are unremarkable, Ear canal(s): erythema, that is moderate, of the left canal, TM's: bulging, on the left, erythema, that is moderate, on the left. Vital Signs: 16:41 BP 141 / 99; Pulse 99; Resp 18; Temp 97.9(TE); Pulse Ox 99% on R/A; Weight 79.38 kg; ld1 Height 5 ft. 7 in. (170.18 cm); Pain 9/10; 16:41 Body Mass Index 27.41 (79.38 kg, 170.18 cm) ld1 MDM: 16:44 Patient medically screened. kb 16:54 Data reviewed: vital signs, nurses notes. Data interpreted: Pulse oximetry: on room air kb is 99 %. Interpretation: normal. Counseling: I had a detailed discussion with the patient and/or guardian regarding: the historical points, exam findings, and any diagnostic results supporting the discharge/admit diagnosis, the need for outpatient follow up, a family practitioner, to return to the emergency department if symptoms worsen or persist or if there are any questions or concerns that arise at home. Administered Medications: 17:03 Drug: Ketorolac 30 mg Route: IM; Site: right ventrogluteal; kb3 17:10 Follow up: Response: No adverse reaction kb3 Disposition: 17:25 Co-signature as Attending Physician, Efrain Mares MD I agree with the assessment and rt plan of care. Disposition Summary: 06/11/22 16:58 Discharge Ordered Location: Home kb Condition: Stable kb Diagnosis - Otitis media, unspecified, left ear kb - Other otitis externa, left ear kb Followup: kb - With: Emergency Department - When: As needed - Reason: Worsening of condition Followup: kb - With: Private Physician - When: 2 - 3 days - Reason: Recheck today's complaints, Continuance of care, Re-evaluation by your physician Discharge Instructions: - Discharge Summary Sheet kb - Otitis Externa, [id number] kb - Otitis Media, Adult, [id number] kb - Ear Drops, Adult, [id number] kb Forms: - Medication Reconciliation Form kb - Thank You Letter kb - Antibiotic Education kb - Prescription Opioid Use kb Prescriptions: - Amoxicillin 875 mg Oral Tablet - take 1 tablet by ORAL route every 12 hours for 10 days; 20 tablet; Refills: 0, kb Product Selection Permitted - Ciprodex 0.3-0.1 % Otic Drops, Suspension - instill 4 drops by OTIC route every 12 hours for 7 days , for ears ONLY; 1 kb Container; Refills: 0, Product Selection Permitted Signatures: Yudy Stout, Giana Godoy RN RN ld1 Brenda Edgar RN RN kb3 Efrain Mares MD MD rt
[2022-06-11 17:21] VITALS: BP 141/99; TEMP 97.9; O2SAT 99
== END 2022-06-11 17:16 | disposition home or self-care (01) ==
LOC: ER 16:36
DX: H66.92 Otitis media, unspecified, left ear (principal); H60.8X2 Other otitis externa, left ear
CPT/HCPCS: 96372; 99283

== ENCOUNTER 2022-06-12 12:19 | Emergency (ER) | payer OTHER ==
--- OUTSIDE RECORDS SUMMARY | 2022-06-12 12:23 | XMS REPORT | Continuity of Care Document ---
:1990 Author Organization [facility] t Address [address] [place] [address] Care Team Providers Name Role Phone [place] go Attending Clinician Unavailable Brisa Knox Attending Clinician Unavailable Payers Payer Name Policy Type Policy Number Effective Date Expiration Date Formerly [facility] [id number] Formerly [facility] [id number] [facility] Problems Condition Condition Condition Status Onset Resolution Last Treating Co mments Source Name Details Category Date Date Treatment Clinician Date [id number] Gastroesop Problem Active Co [facility]mon [facility] reflux - [facility] disease [facility] Migraine Migraine Problem Active Commo n [facility] [id number] Chronic Problem Active Common rhinitis [facility] Sinus Sinus Problem Active Common problem problem [facility] Seasonal Seasonal Problem Active Commo n allergy allergies [facility] Allergies, Adverse Reactions, Alerts This patient has no known allergies or adverse reactions. Social History Social Habit Start Date Stop Date Quantity Comments Source History of Tobacco Use Co mmon [facility] Sex Assigned At Com mon [facility] Smoking Status Start Date Stop Date Source Former Smoker 2022-01-24 00:00:00 2022-01-24 00:00:00 Common S pirit - [facility] Current Smoker 2021-07-08 00:00:00 Common Spiri t [facility] Medications Ordered Filled Start Stop Current Ordering [...] S pirit one) one) 00:00: - [facility] Dexamethaso Dexamethaso 2020-0 No 10mg Common ne ne 5 Spirit 00:00: - [facility] Kenalog Kenalog 2020-0 No 40mg Common (Triamcinol (Triamcinol 5-29 S pirit one) one) 00:00: - [facility] Dexamethaso Dexamethaso 2020-0 No 10mg Common ne ne 5 Spirit 00:00: - [facility] Zofran Zofran 2020-0 Yes [place] 1 tablet Comm on 3-17 [place] as needed Spirit 00:00: for - [facility] nausea/vom [facility] Zofran 4 MG Zofran 4 [...] Yes [place] 2 sprays Co mmon - [place] in each Spirit 00:00: nostril - [facility] 00 [facility] Topamax Topamax 2018- Yes [place] 1 tablet Co mmon 07-26 [place] [facility] 00:00: - [facility] 00 [facility] Topamax 25 Topamax 25 2018-07 No 1{table [...] Yes [place] as Comm on Mens Mens [place] directed [facility] Tylenol Tylenol Yes [place] 1 capsule Com mon [place] as needed [facility] Omeprazole Omeprazole No QD Omeprazole 40 MG [...] Completed [facility] (Triamcinolone) (Triamcinolone) 11:41:00 - [facility] Dexamethasone Dexamethasone 2019-12-17 Completed Common S pirit 11:41:00 - [facility] Kenalog Kenalog 2019-12-17 Completed [facility] (Triamcinolone) (Triamcinolone) 11:41:00 - [facility] Dexamethasone Dexamethasone 2019-12-17 Completed Common S pirit 11:41:00 - [facility] Vital Signs Vital Name Observation Time Observation Value Comments Source height 2022-01-24 08:20:00 65 [in_i] Common [facility] weight 2022-01-24 08:20:00 176 [lb_av] [facility] temperature 2022-01-24 08:20:00 98.1 [degF] [facility] bmi 2022-01-24 08:20:00 29.28 kg/m2 [facility] oximetry 2022-01-24 08:20:00 97 % [facility] respiratory rate 2022-01-24 08:20:00 16 /min Comm on [facility] blood pressure 2022-01-24 08:20:00 104 mm[Hg] Common [facility] - systolic [facility] blood pressure 2022-01-24 08:20:00 61 mm[Hg] Common [facility] - diastolic [facility] height 2021-04-11 13:20:00 65.50 [in_i] Common S pirit [facility] weight 2021-04-11 13:20:00 177.6 [lb_av] Common [facility] temperature 2021-04-11 13:20:00 97.9 [degF] [facility] bmi 2021-04-11 13:20:00 29.1 kg/m2 [facility] oximetry 2021-04-11 13:20:00 98 % [facility] respiratory rate 2021-04-11 13:20:00 16 /min Comm on [facility] blood pressure 2021-04-11 13:20:00 94 mm[Hg] Common [facility] - systolic [facility] blood pressure 2021-04-11 13:20:00 58 mm[Hg] Common [facility] - diastolic [facility] Procedures This patient has no known procedures. Encounters Start End Encounter Admission Attending Care Care Encounter Source Date/Time Date/Time Type Type Clinicians Facility Department ID 2021-10-04 Outpatient Shay, STLMLC STLMLC [id number] Common 09:55:01 [place] [address] [facility] 2021-08-15 Outpatient [place], STLMLC STLMLC [id number] Common 14:26:38 [place] [address] [facility] 2021-08-15 Outpatient [place], STLMLC STLMLC [id number] Common 14:25:40 [place] [address] [facility] 2021-08-15 Outpatient [place], STLMLC STLMLC [id number] Common 13:56:59 [place] [address] [facility] 2021-08-15 Outpatient [place], STLMLC STLMLC [id number] Common 13:52:12 [place] [address] [facility] 2021-08-15 Outpatient [place], STLMLC STLMLC [id number] Common 13:40:00 [place] [address] [facility] 2021-08-15 Outpatient Millender, STLMLC STLMLC [id number] Common 12:09:16 Brisa [address]4577 [facility] 2021-08-15 Outpatient Millender, STLMLC STLMLC [id number] Common 11:14:14 Brisa [address]3979 [facility] 2021-08-15 Outpatient Millender, STLMLC STLMLC [id number] Common 10:58:21 Brisa 89176 [facility] 2022-02-18 2022-02-18 (TEL) STLMLC STLMLC [id number] Co mmon 00:00:00 00:00:00 [facility] 2022-01-24 2022-01-24 OFFICE STLMLC STLMLC [id number] Co mmon 00:00:00 00:00:00 VISIT EST Spir it PT LEVEL 3 - [facility] 2021-08-03 2021-08-03 OFFICE STLMLC STLMLC [id number] Co mmon 00:00:00 00:00:00 VISIT [facility] ESTAB PT - CHI LEVEL 1 [facility] 2021-08-01 2021-08-01 (TEL) STLMLC STLMLC [id number] Co mmon 00:00:00 00:00:00 [facility] 2021-07-27 2021-07-27 OFFICE STLMLC STLMLC [id number] Co mmon 00:00:00 00:00:00 VISIT [facility] ESTAB PT - CHI LEVEL 1 [facility] 2021-07-27 2021-07-27 (TEL) STLMLC STLMLC [id number] Co mmon 00:00:00 00:00:00 [facility] 2021-07-26 2021-07-26 (TEL) STLMLC STLMLC [id number] Co mmon 00:00:00 00:00:00 [facility] 2021-04-23 2021-04-23 (TEL) STLMLC STLMLC [id number] Co mmon 00:00:00 00:00:00 [facility] 2021-04-11 2021-04-11 OFFICE STLMLC STLMLC [id number] Co mmon 00:00:00 00:00:00 VISIT EST Spir it PT LEVEL 3 [facility] 2020-04-13 2020-04-13 Outpatient STLMLC STLMLC [id number] Common 00:00:00 00:00:00 [facility] 2020-02-09 2020-02-09 [facility] [id number] Common 10:40:00 10:40:00 [facility] it Road [facility] 2020-02-08 2020-02-08 [facility] [id number] Common 14:52:00 14:52:00 t [facility] it Road [facility] 2019-12-17 2019-12-17 [facility] [id number] Common 10:40:00 10:40:[address] [facility] 2019-12-15 2019-12-15 [facility] [id number] Common 08:51:00 08:51:[address] [facility] 2019-12-09 2019-12-09 [facility] [id number] Common 13:40:00 13:40:[address] [facility] 2019-12-06 2019-12-06 [facility] [id number] Common 11:24:00 11:24:[address] [facility] 2019-10-05 2019-10-05 [facility] [id number] Common 08:45:00 08:45:[address] [facility] 2019-06-22 2019-06-22 [facility] [id number] Common 15:31:00 15:31:[address] [facility] 2019-05-26 2019-05-26 [facility] [id number] Common 14:00:00 14:00:[address] [facility] Results Test Description Test Time Test Comments Results Result Comments Source SARS-COV 2 Antigen SARS-COV 2 Antigen SARS-COV 2 Antigen SARS-COV 2 Antigen
--- NOTE | 2022-06-12 12:40 | EDPHYS ---
Physician Documentation [facility] Name: Orion Bass Age: 31 yrs Sex: Male : 1990 Arrival Date: 06/12/2022 Time: 12:22 Bed 24 Private MD: ED Physician Efrain Mares HPI: 06/12 12:55 This 31 yrs old Male presents to ER via Ambulatory with complaints of Ear Pain. kb 12:55 The patient presents with pain, moderate. The complaints affect the left ear. Onset: kb The symptoms/episode began/occurred today. Modifying factors: The symptoms are alleviated by nothing, the symptoms are aggravated by nothing. Associated signs and symptoms: The patient has no apparent associated signs or symptoms. Severity of symptoms: At their worst the symptoms were moderate in the emergency department the symptoms are unchanged. The patient has not experienced similar symptoms in the past. The patient has been recently seen at the [facility] Emergency Department, yesterday, for similar complaints. Pt was diagnosed with an ear infection yesterday and put on antibiotics. Ear drum ruptured today . Historical: - Allergies: 12:35 No Known Allergies; iw - PMHx: 12:35 Kidney stones; iw - PSHx: 12:35 Umbilical hernia; iw - Immunization history:: Adult Immunizations unknown. - Social history:: Smoking status: unknown. ROS: 12:54 Constitutional: Negative for fever, chills, and weight loss. kb 12:54 ENT: Positive for ear pain. 12:54 All other systems are negative. Exam: 12:54 Constitutional: This is a well developed, well nourished patient who is awake, alert, kb and in no acute distress. Head/Face: Normocephalic, atraumatic. Cardiovascular: Regular rate and rhythm with a normal S1 and S2. No gallops, murmurs, or rubs. No pulse deficits. Respiratory: Respirations even and unlabored. No increased work of breathing. Talking in full sentences Abdomen/GI: Soft, non-tender. No distention Skin: Warm, dry with normal turgor. Normal color. MS/ Extremity: Pulses equal, no cyanosis. Neurovascular intact. Full, normal range of motion. Neuro: Awake and alert, GCS 15, oriented to person, place, time, and situation. Moves all extremities. Normal gait. Psych: Awake, alert, with orientation to person, place and time. Behavior, mood, and affect are within normal limits. 12:54 ENT: TM's: rupture, on the left, with bloody discharge. Vital Signs: 12:34 BP 104 / 77; Pulse 109; Resp 16; Temp 97.0; Pulse Ox 100% on R/A; iw MDM: 12:27 Patient medically screened. kb 12:54 Data reviewed: vital signs, nurses notes. Data interpreted: Pulse oximetry: on room air kb is 100 %. Interpretation: normal. Counseling: I had a detailed discussion with the patient and/or guardian regarding: the historical points, exam findings, and any diagnostic results supporting the discharge/admit diagnosis, the need for outpatient follow up, an ENT specialist, to return to the emergency department if symptoms worsen or persist or if there are any questions or concerns that arise at home. Administered Medications: 12:52 Drug: [place] (HYDROcodone-acetaminophen) 10 mg-325 mg 1 tabs Route: PO; iw 13:07 Follow up: Response: No adverse reaction [facility] Disposition: 13:51 Co-signature as Attending Physician, Efrain Mares MD I agree with the assessment and rt plan of care. Disposition Summary: 06/12/22 12:39 Discharge Ordered Location: Home kb Condition: Stable kb Diagnosis - Perforated tempanic membrane - left kb Followup: kb - With: Emergency Department - When: As needed - Reason: Worsening of condition Followup: kb - With: Private Physician - When: 2 - 3 days - Reason: Recheck today's complaints, Continuance of care, Re-evaluation by your physician Discharge Instructions: - Discharge Summary Sheet kb - Eardrum Rupture, [id number] kb Forms: - Medication Reconciliation Form kb - Thank You Letter kb - Antibiotic Education kb - Work release form kb - Prescription Opioid Use kb Signatures: Yudy Stout FNP-C FNP-Vera Zuñiga, BENIGNO RN iw Adriane Garcia RN RN 3 Efrain Mares MD MD rt
--- NOTE | 2022-06-12 12:40 | ER ---
Nurse's Notes [facility] Name: Orion Bass Age: 31 yrs Sex: Male : 1990 Arrival Date: 06/12/2022 Time: 12:22 Bed 24 Private MD: Diagnosis: Perforated tempanic membrane - left Presentation: 06/12 12:34 Chief complaint: Patient states: ear drum ruptured, was seen here for ear infection iw yesterday. Coronavirus screen: At this time, the client does not indicate any symptoms associated with coronavirus-19. Ebola Screen: Patient negative for fever greater than or equal to 101.5 degrees Fahrenheit, and additional compatible Ebola Virus Disease symptoms Patient denies exposure to infectious person. Patient denies travel to an Ebola-affected area in the 21 days before illness onset. No symptoms or risks identified at this time. Initial Sepsis Screen: Does the patient meet any 2 criteria? No. Patient's initial sepsis screen is negative. Does the patient have a suspected source of infection? No. Patient's initial sepsis screen is negative. Risk Assessment: Do you want to hurt yourself or someone else? Patient reports no desire to harm self or others. Onset of symptoms was June 12, 2022. 12:34 Method Of Arrival: Ambulatory iw 12:34 Acuity: WALTER 4 iw Historical: - Allergies: 12:35 No Known Allergies; iw - PMHx: 12:35 Kidney stones; iw - PSHx: 12:35 Umbilical hernia; iw - Immunization history:: Adult Immunizations unknown. - Social history:: Smoking status: unknown. Screenin:38 Abuse screen: Denies threats or abuse. Denies injuries from another. Nutritional iw screening: No deficits noted. Tuberculosis screening: No symptoms or risk factors identified. Fall Risk None identified. Assessment: 12:37 General: Appears in no apparent distress. Behavior is calm, cooperative. Pain: iw Complains of pain in left ear. Neuro: Level of Consciousness is awake, alert, obeys commands, Oriented to person, place, time, situation, Moves all extremities. Full function Gait is. EENT: Reports pain in left ear. Vital Signs: 12:34 BP 104 / 77; Pulse 109; Resp 16; Temp 97.0; Pulse Ox 100% on R/A; iw ED Course: 12:22 Patient arrived in ED. mr 12:23 Yudy Stout FNP-C [facility]. kb 12:23 Efrain Mares MD is Attending Physician. kb 12:35 Triage completed. iw 12:35 Arm band placed on. iw 12:35 Patient has correct armband on for positive identification. Bed in low position. Call eh3 light in reach. 12:38 No provider procedures requiring assistance completed. Patient did not have IV access iw during this emergency room visit. 12:51 Vera Connor, RN is Primary Nurse. iw Administered Medications: 12:52 Drug: [place] (HYDROcodone-acetaminophen) 10 mg-325 mg 1 tabs Route: PO; iw 13:07 Follow up: Response: No adverse reaction eh3 Medication: 12:38 VIS not applicable for this client. iw Outcome: 12:35 Discharged to home ambulatory. eh3 12:35 Condition: stable 12:35 Discharge instructions given to patient, Instructed on discharge instructions, follow up and referral plans. Demonstrated understanding of instructions, follow-up care. 12:39 Discharge ordered by . kb 13:06 Patient left the ED. eh3 Signatures: Yudy Stout FNP-C FNP-Gomezb Jacquelyn Aponte mr Vera Connor, RN RN Adriane Garcia RN RN eh3
[2022-06-12] MEDS ORDERED: HYDROCODONE/APAP 10/325 TAB ONE (12:44)
[2022-06-12 13:10] VITALS: BP 104/77; TEMP 97; O2SAT 100
== END 2022-06-12 13:06 | disposition home or self-care (01) ==
LOC: ER 12:19
DX: H72.92 Unspecified perforation of tympanic membrane, left ear (principal)
CPT/HCPCS: 99283